=== PATIENT | male | born 1955 | race Caucasian/White ===

== ENCOUNTER → 2023-09-30 06:45 | Day surgery (SDC) | payer MEDICARE, OTHER, SELFPAY | LOC: GI 06:45 | PROVIDERS: ATTENDING PHYSICIAN Internal Medicine Gastroenterology; FAMILY PHYSICIAN Family Medicine | DX: R13.10 Dysphagia, unspecified (principal); Q39.9 Congenital malformation of esophagus, unspecified; K22.2 Esophageal obstruction; K22.9 Disease of esophagus, unspecified; K31.89 Other diseases of stomach and duodenum; B37.81 Candidal esophagitis | CPT/HCPCS: 43249; 88305; 88342 ==

== ENCOUNTER 2023-12-21 11:31 | Emergency (ER) | payer MEDICARE, OTHER, SELFPAY ==
[2023-12-21 11:38] VITALS: BP 114/85
--- NOTE | 2023-12-21 13:17 | ED.GENMED ---
History of Present Illness
General
Chief Complaint: Musculo-Skeletal Complaint
Source: patient
Exam Limitations: none
Time Seen by Provider: 12/21/23 11:58
Nursing documentation reviewed up to this point in time: agreed with
History of Present Illness
History of Present Illness:
68 y/o M with h/o htn, hld
here with right lateral ankle pain and swelling after mechanical fall lastnight
pt says his R knee gives out on him sometimes and he stood up and it buckled causing him to fall and he heard a dsnap
he initially was able to minimally weightb ear; he feels better today but it is swollen and bruised
no weakness, numbness, wounds.
nothing taken for pain
Past History
Past History
ED Past Medical History: HTN and Hypercholesterolemia
Social History
Tobacco: Non-smoker
Review of Systems
Review of Systems
Allergies reviewed?: Yes
All Other Systems: Not applicable
Phy Exam
Physical Exam
Physical Exam:
GENERAL: Alert , in no apparent distress, comfortable at rest
HEAD: NCAT
CV: 2+ DP PULSES B/L
NEUROLOGICAL: Alert and oriented, no focal neuro deficits, , 5/5 strength, sensation intact, ambulation slight limp right leg
SKIN: Warm and dry, no wounds but some bruising
MUSCULOSKELETAL: moderate STS right ankle with tenderness to malleolus laterally; pain with inversion and eversion;
no tenderness at the base of the 5th metatarsal, no other foot tenderness
no knee/prox tib/fib tenderness, full painless ROM;
PSYCH: Normal and appropriate interaction.
Course
Orders/Labs/Results
Orders:
Orders
12/21/23 11:42
Ankle, Right 3 view CR [CR Ankle - Right Min 3 Views *] Urgent
Comment:
Reason For Exam: injury
12/21/23 13:12
Acetaminophen [Tylenol] 650 mg PO NOW STA
Vital Signs
Initial and Last Documented VS:
Initial Vital Signs
Temp Pulse Resp BP Pulse Ox
98 F 65 16 114/85 98
12/21/23 11:38 12/21/23 11:38 12/21/23 11:38 12/21/23 11:38 12/21/23 11:38
Last Documented Vital Signs
Temp Pulse Resp BP Pulse Ox
98 F 65 16 114/85 98
12/21/23 11:38 12/21/23 11:38 12/21/23 11:38 12/21/23 11:38 12/21/23 11:38
MDM/Problems Addressed
Differential Diagnosis Includes:
ankle fracture, ankle sprian
MDM/Problems Addressed:
68 y/o M
fall causing ankle pain
still able to put some weight on it but painfully, swollen
moderaetely swollen
some chronic PVD skin changes
pulse present
normal sensation and strength
indep reviewed xray and shows oblique distal fibular fracture
d/w orthoepdcis dr. ortiz
ok to place in boot for WBAT and give pt walker
*Critical Care Note
Total Time (30-74mins, 75-104mins- exclusive of procedures): Not Applicable
ED Attending Note
-
Portions of this chart may have been created with voice recognition software.� Occasional wrong word or��sound alike� substitutions may have occurred due to the inherent limitations of voice recognition software.
Discharge Plan
Departure
Patient Disposition: Home (Routine Discharge)
Date of Disposition: 12/21/23
Time of Disposition: 13:20
Patient with high blood pressure during this ER visit?: No
Condition: Fair
Covid-19: Not Applicable
Discharge Problem:
Closed fracture of distal end of right fibula
Instructions: Ankle Fracture (DC)
Referrals:
Ankush Ortiz MD [Active] - Follow up in 1 week
Jony Kay MD [Family Provider] -
Activity Restrictions/Additional Instructions:
You broke your distal fibula. Use the boot while you are awake, you can remove it at night. Try to minimally weight-bear on this by using crutches to assist you. Elevate and ice off-and-on. Tylenol 3 times a day for pain. Follow-up with
orthopedics, call for an appointment on Saturday. Return for any concerns
Interventions
Interventions:
*Risk Screen - Suicide Last Done: 12/21/23 11:38
*General Assessment Last Done: 12/21/23 11:38
*Neglect/Abuse Screening Last Done: 12/21/23 11:38
ED- Fall Risk Assessment Last Done: 12/21/23 13:37
*ED COVID-19 Vaccine History Last Done: 12/21/23 13:37
*Nursing Disposition Last Done: 12/21/23 13:37
ED-Musculoskeletal Assessment Last Done: 12/21/23 13:21
Discharge Date and Time
Discharge Date/Time: 12/21/23 13:38
Print Language: MAORI
[2023-12-21] MEDS: TYLENOL 650 MG PO (13:18)
== END 2023-12-21 13:38 | disposition home or self-care (01) ==
LOC: EMR 11:31
PROVIDERS: EMERGENCY PHYSICIAN Emergency Medicine; FAMILY PHYSICIAN Family Medicine
DX: S82.831A Other fracture of upper and lower end of right fibula, initial encounter for closed fracture (principal); S90.01XA Contusion of right ankle, initial encounter; W18.39XA Other fall on same level, initial encounter; I10 Essential (primary) hypertension; E78.00 Pure hypercholesterolemia, unspecified
CPT/HCPCS: 99283; 73610

== ENCOUNTER → 2024-03-16 10:32 | Outpatient (REF) | payer MEDICARE, OTHER, SELFPAY | LOC: RAD 10:32 | PROVIDERS: ATTENDING PHYSICIAN Internal Medicine Gastroenterology; FAMILY PHYSICIAN Family Medicine | DX: R13.10 Dysphagia, unspecified (principal) | CPT/HCPCS: 74246 ==

== ENCOUNTER 2024-03-27 20:47 | Inpatient (IN) | payer MEDICARE, OTHER, SELFPAY ==
[2024-03-27] VITALS (7 sets, daily range): BP systolic 98–162; BP diastolic 75–96; BMI 28.6; BMI 28.8
--- NOTE | 2024-03-27 11:29 | ED.GENMED ---
ED Provider Triage
<Abner Iverson PA-C - Last Filed: 03/27/24 11:32>
-
Patient seen by provider in Triage?: Seen in Triage
Attestation: A medical screening examination has been initiated by a qualified medical provider. Based on the assessment performed at this time, it has been determined that an emergent medical condition may exist and the patient has been informed
that further medical evaluation and possible additional diagnostic testing may be needed.
HPI: 68-year-old male presents for evaluation of left-sided chest pain, states has been ongoing for several months but acutely worsened last night. Worse when he sits up or gets out of bed. Denies any exertional worsening but admits he has not
exerted himself due to a foot fracture recently. Pain is minimally pleuritic, does not radiate
GENERAL: Alert , in no apparent distress
EYE: No visual abnormalities.
NECK: Trachea midline
ENT: No visible abnormalities.
LUNGS: No acute respiratory distress
NEUROLOGICAL: Alert and oriented
SKIN: Skin intact. No visible changes.
MUSCULOSKELETAL: Moving extremities normally
PSYCH: Normal and appropriate interaction.
This is a medical evaluation conducted in person to initiate diagnostic evaluation and provide initial therapeutics. Please see further documentation by the treating clinician.
History of Present Illness
<Abner Iverson PA-C - Last Filed: 03/27/24 11:32>
General
Chief Complaint: Chest Pain
Time Seen by Provider: 03/27/24 16:25
<Reginaldo Rivera MD - Last Filed: 03/27/24 19:11>
History of Present Illness
History of Present Illness:
Patient presents to the emergency department with severe left-sided chest pain ongoing for the past 2 days. Pain increases with cough. Denies any fevers or chills. Denies any dyspnea. States he has a history of borderline COPD and long-term
smoking history. States he has been having some discomfort in the left side of his chest over the past couple of months however it has become much more severe over the past
Past History
<Abner Iverson PA-C - Last Filed: 03/27/24 11:32>
Past History
ED Past Medical History: HTN and Hypercholesterolemia
Social History
Tobacco: Non-smoker
Phy Exam
<Reginaldo Rivera MD - Last Filed: 03/27/24 19:11>
Physical Exam
Physical Exam:
GENERAL APPEARANCE: NAD, well developed/ well nourished
EYES lids/conjunctiva normal
EARS/NOSE/THROAT Mucous membranes moist, uvula midline without oral pharyngeal erythema, exudate or swelling
HEAD/NECK normocephalic atraumatic, neck is supple.
RESPIRATORY respiratory effort normal, speaks in full sentences, no accessory muscle use. Lungs clear to auscultation without rhonchi, wheezes, rales
CARDIAC Regular rate and rhythm, no edema.
ABDOMINAL Soft, ND/NT. There is some mottling to the left side of his abdomen
MUSCLES/EXTREMITIES No abnormal range of motion, no swelling.
SKIN Warm, pink and dry. No rashes
NEUROLOGICAL Speech is clear and appropriate. Normal level of consciousness. 5/5 strength in all extremities.
PSYCH Normal mood and affect. Judgement/competence is appropriate
Scores
<Reginaldo Rivera MD - Last Filed: 03/27/24 19:11>
Heart Score for Chest Pain Patients
STEMI patient?: Not applicable
Course
<Abner Iverson PA-C - Last Filed: 03/27/24 11:32>
Orders/Labs/Results
Orders:
Orders
03/27/24 11:27
EKG [Electrocardiogram (*1)] Urgent
Reason for Study: Chest Pain
03/27/24 11:28
EKG- Treatment ONCE
03/27/24 11:32
CR Chest - 2 Views Urgent
Comment:
Reason For Exam: chest pain
03/27/24 11:41
Complete Blood Count/With Diff Urgent
Comprehensive Metabolic Panel Urgent
Troponin I Urgent
03/27/24 16:41
Azithromycin 500 mg/250 ml [Zithromax Infusion] 500 mg in 250 ml IV NOW
CefTRIAXone [Rocephin] 1,000 mg IV NOW STA
03/27/24 16:45
CT Chest PE Study Urgent
Comment:
Reason For Exam: L sided pleuritic pain, abnormal CXR rule
03/27/24 16:46
Morphine Sulfate 4 mg IV NOW STA
03/27/24 16:57
Lactic Acid Q4H
Comment: CANCEL 2nd LACTIC ACID IF 1st LACTIC ACID IS LESS THAN 2
Blood Culture Q30M
YANNICK Source: Blood/Venous
Specimen Description:
03/27/24 17:06
Blood Culture Q30M
YANNICK Source: Blood/Venous
Specimen Description:
03/27/24 19:06
0.9% Sodium Chloride 1000 ml [Nss] 1,000 ml IV BOLUS
03/27/24 20:45
Lactic Acid Q4H
Comment: CANCEL 2nd LACTIC ACID IF 1st LACTIC ACID IS LESS THAN 2
Abnormal Lab Results
03/27/24 03/27/24
11:41 16:57
WBC 20.6 H 10^3/uL
(4.8-10.8)
RBC 3.94 L 10^6/uL
(4.70-6.10)
MCV 110.2 H fL
(80.0-94.0)
MCH 37.1 H pg
(27.0-31.0)
Abs Immat Gran (auto) 0.2 H 10^3/uL
(0-0.05)
Absolute Neuts (auto) 18.2 H 10^3/uL
(1.4-6.5)
Absolute Lymphs (auto) 0.9 L 10^3/uL
(1.2-3.4)
Absolute Monos (auto) 1.2 H 10^3/uL
(0.1-0.6)
Immature Gran % 1.1 H %
(0-0.5)
Neutrophils % 88.3 H %
(42.2-75.2)
Lymphocytes % 4.5 L %
(20.5-51.1)
Sodium 134 L mmol/L
(135-145)
Chloride 95 L mmol/L
(98-107)
Glucose 252 H mg/dl
(70-99)
Lactic Acid 2.5 H mmol/L
(0.7-2.0)
Calcium 8.1 L mg/dl
(8.4-10.2)
Total Bilirubin 1.4 H mg/dl
(0.2-1.3)
03/27/24 11:41
03/27/24 11:41
Vital Signs
Initial and Last Documented VS:
Initial Vital Signs
Temp Pulse Resp BP Pulse Ox
99.5 F 90 16 145/89 95
03/27/24 11:35 03/27/24 11:35 03/27/24 11:35 03/27/24 11:35 03/27/24 11:35
Last Documented Vital Signs
Temp Pulse Resp BP Pulse Ox
99.8 F 90 18 134/86 91
03/27/24 16:30 03/27/24 17:15 03/27/24 17:15 03/27/24 17:13 03/27/24 17:15
<Reginaldo Rivera MD - Last Filed: 03/27/24 19:11>
Orders/Labs/Results
Orders:
Orders
03/27/24 11:27
EKG [Electrocardiogram (*1)] Urgent
Reason for Study: Chest Pain
03/27/24 11:28
EKG- Treatment ONCE
03/27/24 11:32
CR Chest - 2 Views Urgent
Comment:
Reason For Exam: chest pain
03/27/24 11:41
Complete Blood Count/With Diff Urgent
Comprehensive Metabolic Panel Urgent
Troponin I Urgent
03/27/24 16:41
Azithromycin 500 mg/250 ml [Zithromax Infusion] 500 mg in 250 ml IV NOW
CefTRIAXone [Rocephin] 1,000 mg IV NOW STA
03/27/24 16:45
CT Chest PE Study Urgent
Comment:
Reason For Exam: L sided pleuritic pain, abnormal CXR rule
03/27/24 16:46
Morphine Sulfate 4 mg IV NOW STA
03/27/24 16:57
Lactic Acid Q4H
Comment: CANCEL 2nd LACTIC ACID IF 1st LACTIC ACID IS LESS THAN 2
Blood Culture Q30M
YANNICK Source: Blood/Venous
Specimen Description:
03/27/24 17:06
Blood Culture Q30M
YANNICK Source: Blood/Venous
Specimen Description:
03/27/24 19:06
0.9% Sodium Chloride 1000 ml [Nss] 1,000 ml IV BOLUS
03/27/24 20:45
Lactic Acid Q4H
Comment: CANCEL 2nd LACTIC ACID IF 1st LACTIC ACID IS LESS THAN 2
Abnormal Lab Results
03/27/24 03/27/24
11:41 16:57
WBC 20.6 H 10^3/uL
(4.8-10.8)
RBC 3.94 L 10^6/uL
(4.70-6.10)
MCV 110.2 H fL
(80.0-94.0)
MCH 37.1 H pg
(27.0-31.0)
Abs Immat Gran (auto) 0.2 H 10^3/uL
(0-0.05)
Absolute Neuts (auto) 18.2 H 10^3/uL
(1.4-6.5)
Absolute Lymphs (auto) 0.9 L 10^3/uL
(1.2-3.4)
Absolute Monos (auto) 1.2 H 10^3/uL
(0.1-0.6)
Immature Gran % 1.1 H %
(0-0.5)
Neutrophils % 88.3 H %
(42.2-75.2)
Lymphocytes % 4.5 L %
(20.5-51.1)
Sodium 134 L mmol/L
(135-145)
Chloride 95 L mmol/L
(98-107)
Glucose 252 H mg/dl
(70-99)
Lactic Acid 2.5 H mmol/L
(0.7-2.0)
Calcium 8.1 L mg/dl
(8.4-10.2)
Total Bilirubin 1.4 H mg/dl
(0.2-1.3)
03/27/24 11:41
03/27/24 11:41
Vital Signs
Initial and Last Documented VS:
Initial Vital Signs
Temp Pulse Resp BP Pulse Ox
99.5 F 90 16 145/89 95
03/27/24 11:35 03/27/24 11:35 03/27/24 11:35 03/27/24 11:35 03/27/24 11:35
Last Documented Vital Signs
Temp Pulse Resp BP Pulse Ox
99.8 F 90 18 134/86 91
03/27/24 16:30 03/27/24 17:15 03/27/24 17:15 03/27/24 17:13 03/27/24 17:15
<Reginaldo Rivera MD - Last Filed: 03/27/24 19:11>
*Critical Care Note
Total Time (30-74mins, 75-104mins- exclusive of procedures): Not Applicable
ED Attending Note
<Abner Iverson PA-C - Last Filed: 03/27/24 11:32>
-
Portions of this chart may have been created with voice recognition software.� Occasional wrong word or��sound alike� substitutions may have occurred due to the inherent limitations of voice recognition software.
<Reginaldo Rivera MD - Last Filed: 03/27/24 19:11>
ED Attending Note
ED Attending Note:
Patient presents with months of intermittent pleuritic chest pain now worsening with cough. Afebrile though temp is 99.8. Saturating around 93% on room air, in no respiratory distress. Leukocytosis and lactic acid elevation noted. Patient with
severe sepsis with evidence of endorgan damage. Also with elevated blood glucose in the 250s without any history of diabetes. No evidence of DKA. Will give IV fluids for this. CTA of the chest negative for pulmonary embolism but showing moderate
left-sided pleural effusion with loculation and likely pneumonia in the left lower to mid lung. Patient covered antibiotics and given IV fluids for sepsis. 30 cc/kg not indicated given lack of septic shock
Discharge Plan
Departure
Patient Disposition: Admit
Date of Disposition: 03/27/24
Time of Disposition: 19:09
Presentation/result/management discussed w/ accepting MD/DO: Hospitalist
Discharge Problem:
Loculated pleural effusion, Pneumonia, Sepsis
Prescriptions:
No Action
hydroxyurea 500 mg Capsule
500 mg PO BID
cyanocobalamin (vitamin B-12) 1,000 mcg Tablet
1,000 mcg PO DAILY
aspirin 81 mg Tablet,Delayed Release (Dr/Ec)
81 mg PO DAILY
amlodipine-benazepril 5-20 mg Capsule
1 cap PO DAILY
pantoprazole [Protonix] 40 mg Tablet,Delayed Release (Dr/Ec)
40 mg PO DAILY
folic acid 1 mg Tablet
1 mg PO DAILY
rosuvastatin [Crestor] 40 mg Tablet
40 mg PO DAILY
calcium carbonate-vitamin D3 [Calcium 500 + D] 500 mg-10 mcg (400 unit) Tablet
1 tab PO DAILY
Trelegy Ellipta 100-62.5-25 mcg Blister With Device
1 inh INHALATION R DAILY
Referrals:
Jony Kay MD [Family Provider] -
Interventions
Interventions:
*Risk Screen - Suicide Last Done: 03/27/24 11:35
*General Assessment Last Done: 03/27/24 11:35
*Neglect/Abuse Screening Last Done: 03/27/24 11:35
*ED COVID-19 Vaccine History Last Done: 03/27/24 16:19
Discharge Date and Time
Print Language: IRISH
[2024-03-27 12:17] LABS: % Basophils 0.2 % (0-2); % Eosinophils 0.1 % (0-6); % Immature Granulocytes 1.1 % (0-0.5); % Lymphocytes 4.5 % (20.5-51.1); % Monocytes 5.8 % (1.7-9.3); % Neutrophils 88.3 % (42.2-75.2); Absolute Immature Granulocytes 0.2 10^3/uL (0-0.05); Absolute Lymphocytes 0.9 10^3/uL (1.2-3.4); Absolute Monocytes 1.2 10^3/uL (0.1-0.6); Absolute Neutrophils 18.2 10^3/uL (1.4-6.5); Hematocrit 43.4 % (39.0-52.0); Hemoglobin 14.6 g/dL (13.0-18.0); Mean Corp Hgb Conc. 33.6 g/dL (33.0-37.0); Mean Corpuscular Hgb 37.1 pg (27.0-31.0); Mean Corpuscular Volume 110.2 fL (80.0-94.0); Mean Platelet Volume 8.3 fL (7.4-10.4); Nucleated Red Blood Cells % 0 % (-); Platelet Count 282 10^3/uL (130-400); Red Blood Cell Count 3.94 10^6/uL (4.70-6.10); Red Cell Dist. Width 12.7 % (11.5-14.5); White Blood Cell Count 20.6 10^3/uL (4.8-10.8)
[2024-03-27 12:23] LABS: ALT (SGPT) 29 U/L (0-50); AST (SGOT) 29 U/L (17-59); Albumin 3.6 g/dl (3.5-5.0); Alkaline Phosphatase 73 U/L (38-126); Blood Urea Nitrogen 12 mg/dl (9-20); Calcium 8.1 mg/dl (8.4-10.2); Carbon Dioxide 29 mmol/L (22-30); Chloride 95 mmol/L (98-107); Glucose 252 mg/dl (70-99); Potassium 4.2 mmol/L (3.5-5.1); Sodium 134 mmol/L (135-145); Total Bilirubin 1.4 mg/dl (0.2-1.3); Total Protein 6.3 g/dl (6.3-8.2); eGFR > 60.00
[2024-03-27 12:24] LABS: Troponin I < 0.012 ng/ml
[2024-03-27] MEDS: MORPHINE SULFATE 4 MG IV (16:53)
[2024-03-27] MEDS: ROCEPHIN 1000 MG IV (17:09)
[2024-03-27] MEDS: ZITHROMAX INFUSION 250 IV (17:12)
[2024-03-27 17:19] LABS: Lactic Acid 2.5 mmol/L (0.7-2.0)
--- NOTE | 2024-03-27 20:00 | EDRN ---
Report received, patient ambulated to the restroom and back in bed.
--- NOTE | 2024-03-27 20:21 | HPS.HSE ---
Family Physician
-
Family Physician: Jony Kay
Chief Complaint
-
Chest pain
History of Present Illness
He is a 68-year-old former smoker with a past medical history significant for COPD, hyperlipidemia, hypertension, presenting to the emergency department with a 1 week history of left-sided chest pain.
Patient reports chronic cough for several months now which has not changed recently. Over the last 1 week is reported as a constant sharp chest pain that is worse with inspiration or movement. He denies having fevers or chills at home. Denies any
changes to the intensity of his cough. He denies feeling short of breath at rest. He is unable to tell me when he has not any exertional dyspnea. Patient reports sick contacts with his son with the cold. He denies any lower extremity swelling.
He denies palpitations lightheadedness or dizziness. He denies any recent travel. Patient denies any recent antibiotic use. He denies substernal exertional pain. Pain is localized to the left lower chest anteriorly and is nonradiating.
In the emergency department he had a low-grade temp of 99.8, he was satting 90% on room air, blood pressure was 134/80 with a pulse of 90. Troponin was negative. Lactic acid was 2.5. Chest x-ray shows left hemithorax opacification consistent with
a pleural effusion. CT consistent with left moderate pleural effusion with loculation. There is a patchy parenchymal opacity within the left mid to lower lung concerning for pneumonia versus atelectasis. There is also a small pericardial
effusion. No PE.
White count was 20,000, hemoglobin and platelet were normal. Electrolytes BUN/creatinine were normal.
Medical History
Past Medical History
Past Medical History: Reports COPD, GERD, HTN and Hypercholesterolemia
Past Surgical History: Reports Bowel Resection
Social History
Tobacco: Former Smoker
Alcohol: Occasional
Drug: None
Personal:
Living: With Family
Family History
Family History: Not pertinent
Allergies / Home Medications
Allergies reflects when Allergies were last updated in [employer].
Home Medications with original date entered in [employer]
Allergy/Medication List:
Allergies
Allergy/AdvReac Type Severity Reaction Status Date / Time
No Known Allergies Allergy Verified 03/27/24 11:35
Home Medications
amlodipine 5 mg-benazepril 20 mg capsule 1 cap PO DAILY 03/27/24
aspirin 81 mg tablet,delayed release 81 mg PO DAILY 03/27/24
calcium 500 mg (as carbonate)-vitamin D3 10 mcg (400 unit) tablet (Calcium 500 + D) 1 tab PO DAILY 03/27/24
cyanocobalamin (vitamin B-12) 1,000 mcg tablet 1,000 mcg PO DAILY 03/27/24
fluticasone fur. 100 mcg-umeclid 62.5 mcg-vilant 25 mcg inhalat.powder (Trelegy Ellipta) 1 inh inhalation R DAILY 03/27/24
folic acid 1 mg tablet 1 mg PO DAILY 03/27/24
hydroxyurea 500 mg capsule 500 mg PO BID 03/27/24
pantoprazole 40 mg tablet,delayed release (Protonix) 40 mg PO DAILY 03/27/24
rosuvastatin 40 mg tablet (Crestor) 40 mg PO DAILY 03/27/24
Review of Systems
-
History Source: Patient
Constitutional: Reports No Symptoms
EENT: Reports No Symptoms
Respiratory: Reports Cough
Cardiac: Reports Chest Pain
Abdomen/GI: Reports No Symptoms
: Reports No Symptoms
Musculoskeletal: Reports No Symptoms
Skin: Reports No Symptoms
Neurological: Reports No Symptoms
Endocrine: Reports No Symptoms
Hematologic/Lymphatic: Reports No Symptoms
Psych: Reports No Symptoms
Physical Exam
Vital Signs
Vital Signs
Temp Pulse Resp BP Pulse Ox
99.8 F 90 18 134/86 91
03/27/24 16:30 03/27/24 17:15 03/27/24 17:15 03/27/24 17:13 03/27/24 17:15
Physical Exam
General: Well Developed, Well Nourished and Pain
HEENT: NormoCephalic, Anicteric, Moist mucous membranes and Atraumatic
Respiratory: Clear
Cardiac: S1/S2 and Regular Rhythm
Breast: Deferred by me
GI: Soft, Non Tender, Non Distended and Normal Bowel Sounds
Rectal: Deferred by Provider
Genito-urinary: Clear Urine
Musculoskeletal: No Clubbing, No Cyanosis and No Edema
Skin: Warm
Neuro: AO x 3 and Nonfocal/grossly intact
Hematologic/Lymphatic: No Lymphadenopathy
Psych: Calm
Laboratory Results
-
03/27/24 11:41
03/27/24 11:41
Laboratory Results
Lactic Acid 2.5 mmol/L (0.7-2.0) H 03/27/24 16:57
Total Bilirubin 1.4 mg/dl (0.2-1.3) H 03/27/24 11:41
AST 29 U/L (17-59) 03/27/24 11:41
ALT 29 U/L (0-50) 03/27/24 11:41
Alkaline Phosphatase 73 U/L (38-126) 03/27/24 11:41
Troponin I < 0.012 ng/ml 03/27/24 11:41
Data Reviewed
-
Diagnostic Radiology: Image Personally Visualized and interpreted and Report Reviewed by me
CT Scan: Report Reviewed by me
Medical Tests (Nuc Med, Echo, EKG etc): Image Personally Visualized and interpreted
Lab Data: Labs Reviewed by me
Old Records: Reviewed
Impression/Plan
-
IMPRESSION:
68 y.o male with left sided pleuritic chest pain, SOB, low grade fevers and leukocytosis. Left sided loculated pleural effusion c/w parapneumonic effusion. Has small pericardial effusion with possible pneumonia related pericarditis.
PLAN:
1. PNA - Community acquired pna. No recent abx use. Mild O2 requirements
- admit to med surg
- check legionella ag
- blood cultures if febrile
- start ceftriaxone/azithromycin
- supportive measures
2. Effusion - loculated pleural effusion, moderate size,
- IR for diagnostic tap and cultures
- pulmonary consultation
3. Pericardial effusion - likely related to infection above
- thoracentesis for now
- treat infection
- nsaids prn
- echo
- amira need f/u echo after d/c
4. COPD - stable
- continue home inhaler (trelegy)
- prn nebs
- no indication for systemic steroids
DVT PPX - lovenox sq
Code status - full code
[2024-03-27] MEDS: NSS 1000 IV (20:23)
--- NOTE | 2024-03-27 20:30 | EDRN ---
Hospitalist at bedside working on admission, patient also placed on 2l nasal canula, o2 sats were dropping to 89%, no other complaints
[2024-03-27] MEDS: TYLENOL 650 MG PO (22:23)
[2024-03-27] MEDS: ROBITUSSIN DM 5 ML PO (22:23)
[2024-03-28 00:08] VITALS: BP 110/73
[2024-03-28 00:20] LABS: Lactic Acid 1.7 mmol/L (0.7-2.0)
[2024-03-28 00:30] LABS: COVID-19 Antigen Negative (Negative)
--- NOTE | 2024-03-28 06:08 | PTCARENOTE ---
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
--- NOTE | 2024-03-28 07:32 | W.PN.HOSP.TC ---
Addendum entered and electronically signed by Bulmaro Vásquez MD 03/28/24 17:19:
Stopped Flagyl as Pulmonary has mentioned Ceftriaxone and Azithromycin are adequate for now.
Original Note:
Today's Communication/Plan
-
Continue antibiotics
Assessment / Plan
Assessment / Plan
Physical Exam
General: Not in acute distress
HEENT: Normocephalic
Respiratory: Clear to Auscultation Bilaterally
Cardiac: S1/S2 and Regular Rhythm
GI: Soft, Non Tender, Non Distended and Normal Bowel Sounds
Musculoskeletal: No Cyanosis and No Edema
Skin: Warm
Neuro: AO x 3 and Nonfocal/grossly intact
Psych: Calm
Assessment/Plan
68 y/o male with left sided pleuritic chest pain, SOB, low grade fevers and leukocytosis. Left sided loculated pleural effusion c/w parapneumonic effusion. Has small pericardial effusion with possible pneumonia related pericarditis.
Presentation with left-sided pleuritic chest pain, cough and mild shortness of breath
Pneumonia - Community-Acquired Pneumonia
Loculated Pleural Effusion
Leukocytosis
Acute Hypoxic Respiratory Insufficiency (not on home oxygen)
- No recent antibiotic use
- Influenza and Legionella antigen negative
- blood cultures pending
- start ceftriaxone/azithromycin/flagyl (Flagyl added in case empyema)
- supportive measures
Lactic Acidosis
-Resolved
Pleural Effusion - loculated pleural effusion, moderate size,
- IR consulted on admission for diagnostic tap and cultures
- Pulmonary consulted at the time if admission
Small Pericardial effusion - likely related to infection above
- treat infection
- nsaids prn
- echo
- amira need f/u echo after d/c
COPD - stable
- continue home inhaler (trelegy)
- prn nebs
- no indication for systemic steroids
DVT Prophylaxis: Lovenox subq
Code Status: Full Code
Anticipated Discharge: > 48 hours
Subjective/Interval History
-
Date of Service: March 28, 2024
Patient was seen and examined. He reported that his chest pain and shortness of breath have improved.
Objective Data
-
Labs:
Laboratory Results
03/28/24
06:58
WBC Pending
Hgb Pending
Hct Pending
Plt Count Pending
Sodium Pending
Potassium Pending
Chloride Pending
Carbon Dioxide Pending
BUN Pending
Creatinine Pending
Glucose Pending
Calcium Pending
Vital Signs:
Vital Signs
Temp Pulse Resp BP Pulse Ox
100.5 F H 83 20 110/73 94
03/27/24 23:00 03/28/24 00:08 03/27/24 23:00 03/28/24 00:08 03/27/24 23:00
I&O
03/27/24 03/28/24 03/29/24
06:59 06:59 06:59
Intake Total 480 / 480
Balance 480 / 480
[2024-03-28 07:38] LABS: Hematocrit 37.2 % (39.0-52.0); Hemoglobin 12.7 g/dL (13.0-18.0); Mean Corp Hgb Conc. 34.1 g/dL (33.0-37.0); Mean Corpuscular Hgb 37.1 pg (27.0-31.0); Mean Corpuscular Volume 108.8 fL (80.0-94.0); Mean Platelet Volume 8.5 fL (7.4-10.4); Platelet Count 257 10^3/uL (130-400); Red Blood Cell Count 3.42 10^6/uL (4.70-6.10); Red Cell Dist. Width 13.1 % (11.5-14.5); White Blood Cell Count 25.2 10^3/uL (4.8-10.8)
[2024-03-28 07:40] VITALS: BP 137/74
[2024-03-28 07:59] LABS: Blood Urea Nitrogen 18 mg/dl (9-20); Calcium 8.1 mg/dl (8.4-10.2); Carbon Dioxide 22 mmol/L (22-30); Chloride 98 mmol/L (98-107); Estimated Creatinine Clearance 114 ml/min; Glucose 159 mg/dl (70-99); LDH 302 U/L (120-246); Potassium 3.7 mmol/L (3.5-5.1); Sodium 134 mmol/L (135-145); Total Protein 6.1 g/dl (6.3-8.2); eGFR > 60.00
[2024-03-28] MEDS: SYMBICORT 80/4.5 MCG INHALER 2 PUFF INH ×2 (08:37→16:28)
[2024-03-28] MEDS: SPIRIVA RESPIMAT 2.5 MCG 2 PUFF INH (08:37)
[2024-03-28] MEDS: FOLVITE 1 MG PO (09:03)
[2024-03-28] MEDS: CRESTOR 40 MG PO (09:03)
[2024-03-28] MEDS: ASPIR LOW (ENTERIC COATED) 81 MG PO (09:03)
[2024-03-28] MEDS: PROTONIX 40 MG PO (09:03)
[2024-03-28] MEDS: HYDREA 500 MG PO ×2 (09:03→19:37)
[2024-03-28] MEDS: LOTREL 5 MG/20 MG 1 CAPSULE PO (09:04)
[2024-03-28 10:03] VITALS: BP 128/76; PULSE 87; O2SAT 90
[2024-03-28 12:31] LABS: Glycohemoglobin (HgbA1c) 6.4 % (4.0-5.6)
--- NOTE | 2024-03-28 14:55 | PTCARENOTE ---
pt nauseous and vomiting. clarifying PRN Zofran with pharm
--- NOTE | 2024-03-28 15:13 | CON.PUL ---
Consultation
Consultation Request
Date/Time Consultation Requested: 03/28
Date/Time Consultation Performed: 03/28
Reason for Consultation: Pleural effusion
Medical History
-
History of Present Illness:
History obtained from the patient and reviewing the medical records. Patient is a 68-year-old male with history of hypertension, hypercholesterolemia, achalasia being scheduled for surgery in the next few months. He has been complaining of
left-sided chest discomfort for months. He also describes a cough. He does admit to some mild shortness of breath but otherwise denies any limitations. For this reason he brought himself into [facility] where upon arrival, temperature
99.5, pulse 90, breathing at 16, blood pressure 145/89, 95%. Patient had chest x-ray which revealed left pleural parenchymal process, elevated white count of 20.6, elevated blood sugars. CT chest was obtained which revealed left pleural effusion
which appeared to be loculated. There was no evidence of pulmonary embolism. There is also small pericardial effusion and documented diffuse dilation of the esophagus which was present on prior imaging and workup. We are asked to comment on his
pulmonary process
.
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 History of achalasia followed by GI
Past Medical History
Past Medical History: None (See above)
Past Surgical History: None (See above)
Social History
Tobacco: Former Smoker ([id number] history of smoking, quit 2023)
Alcohol: Occasional
Drug: None
Living: With Family
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
Family History
Family History: Other (Family history of lung cancer, sister 6 decade.)
Allergies / Home Medications
Allergies
Allergy/AdvReac Type Severity Reaction Status Date / Time
No Known Allergies Allergy Verified 03/27/24 11:35
Home Medications
�Medication �Instructions �Recorded �Confirmed �Last Taken �Type
amlodipine 5 mg-benazepril 20 mg 1 cap PO DAILY 03/27/24 03/27/24 03/25/24 History
capsule
aspirin 81 mg tablet,delayed 81 mg PO DAILY 03/27/24 03/27/24 03/25/24 History
release
calcium 500 mg (as 1 tab PO DAILY 03/27/24 03/27/24 03/25/24 History
carbonate)-vitamin D3 10 mcg (400
unit) tablet (Calcium 500 + D)
cyanocobalamin (vitamin B-12) 1,000 mcg PO DAILY 03/27/24 03/27/24 03/25/24 History
1,000 mcg tablet
fluticasone fur. 100 mcg-umeclid 1 inh inhalation R DAILY 03/27/24 03/27/24 03/25/24 History
62.5 mcg-vilant 25 mcg
inhalat.powder (Trelegy Ellipta)
folic acid 1 mg tablet 1 mg PO DAILY 03/27/24 03/27/24 03/25/24 History
hydroxyurea 500 mg capsule 500 mg PO BID 03/27/24 03/27/24 03/25/24 History
pantoprazole 40 mg tablet,delayed 40 mg PO DAILY 03/27/24 03/27/24 03/25/24 History
release (Protonix)
rosuvastatin 40 mg tablet (Crestor) 40 mg PO DAILY 03/27/24 03/27/24 03/25/24 History
Review of Systems
-
All other systems: Negative unless noted
Vitals / Labs / Diagnostic Testing
Vital Signs
Temp Pulse Resp BP Pulse Ox
98.6 F 87 18 137/74 96
03/28/24 07:40 03/28/24 08:40 03/28/24 08:40 03/28/24 07:40 03/28/24 08:40
Lab Data
03/28/24 06:58
03/28/24 06:58
Microbiology
03/28/24 05:34 Urine Legionella Urinary Antigen - Final
Negative for Legionella pneumophila Serogroup 1 antigen.
A negative result does not rule out the possiblity of
Legionella infection due to other serogroups or species of
Legionella. Clinical correlation is recommended.
03/27/24 23:57 Nasal Swab Influenza Types A & B (PORSCHE) - Final
Negative for Influenza A & B, NAAT
Negative results must be combined with clinical observations
and patient history.
Nucleic Acid Amplification test (NAAT)performed on the
[employer] / ?.?? platform.
Diagnostic Testing:
Physical Exam
-
HEENT: Normocephalic
Cardiovascular: S1/S2, Regular Rhythm, Murmur (n), Rub (n) and Peripheral Edema (n)
Respiratory: Wheeze (n), Rales (n), Rhonchi (n), Non-Labored Respirations and Other (decreased BS throughout)
GI: Soft, Non Distended and Non Tender
Neurology: Awake, Alert, Oriented and No Motor Deficits
Skin: Good Color
General: Comfortable
Assessment
-
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 He denies any trauma. Found to have
loculated pleural effusion. He was also being worked up for achalasia and possible GI surgery in the next few months. We are asked to comment on his pulmonary process
Loculated left pleural effusion
Mild pleural thickening
Likely chronic, symptoms present for months (pleurisy, mild dyspnea)
Chronic cough
Suspected COPD
Conditions present prior to admission
Hypertension/hyperlipidemia
History of achalasia
Followed by GI, awaiting for surgical intervention
GERD
[id number] history of smoking, quit 2023
Family history of lung cancer (sister) sixth decade
Plan/recommendations
At this time, patient appears to be nontoxic
On further questioning, symptoms are very present for months
Family history of lung cancer noted
Patient denies any symptoms to suggest infection such as fevers, chills, sweats, significant weight loss
He also feels symptoms have improved significantly since admission. He has received antibiotics and 1 dose of morphine yesterday p.m.
Moving forward
Continue with empiric antibiotics
Ceftriaxone/azithromycin is adequate
Continue with inhaler therapy for suspected COPD
Eventual left thoracentesis is recommended but no urgency
We will send for appropriate studies when completed including cytology, chemistries
Pain control as needed
Head of bed elevated, aspiration precautions given achalasia
DVT prophylaxis: Continue with enoxaparin
GI prophylaxis: Patient on Protonix
Will follow
[2024-03-28] MEDS: ZOFRAN 4 MG IV (15:15)
[2024-03-28] MEDS: TYLENOL 650 MG PO (15:28)
[2024-03-28 15:30] VITALS: BP 127/52
[2024-03-28] MEDS: LOVENOX 40 MG SC (17:32)
[2024-03-28] MEDS: ROCEPHIN 1000 MG IV (17:33)
[2024-03-28] MEDS: STERILE WATER FOR INJECTION 10 ML IV (17:34)
[2024-03-28] MEDS: ZITHROMAX INFUSION 250 IV (17:34)
[2024-03-28 23:00] VITALS: BP 109/50
[2024-03-29] MEDS: ZOFRAN 4 MG IV ×2 (03:52→16:45)
[2024-03-29 07:11] LABS: % Basophils 0.2 % (0-2); % Eosinophils 0.5 % (0-6); % Immature Granulocytes 1.2 % (0-0.5); % Lymphocytes 7.6 % (20.5-51.1); % Monocytes 6.5 % (1.7-9.3); Absolute Eosinophils 0.1 10^3/uL (0-0.7); Absolute Immature Granulocytes 0.3 10^3/uL (0-0.05); Absolute Lymphocytes 1.8 10^3/uL (1.2-3.4); Absolute Monocytes 1.5 10^3/uL (0.1-0.6); Absolute Neutrophils 19.5 10^3/uL (1.4-6.5); Hematocrit 35.3 % (39.0-52.0); Hemoglobin 11.7 g/dL (13.0-18.0); Mean Corp Hgb Conc. 33.1 g/dL (33.0-37.0); Mean Corpuscular Hgb 36.6 pg (27.0-31.0); Mean Corpuscular Volume 110.3 fL (80.0-94.0); Mean Platelet Volume 8.6 fL (7.4-10.4); Nucleated Red Blood Cells % 0 % (-); Platelet Count 256 10^3/uL (130-400); White Blood Cell Count 23.2 10^3/uL (4.8-10.8)
[2024-03-29] MEDS: SPIRIVA RESPIMAT 2.5 MCG 2 PUFF INH (07:14)
[2024-03-29] MEDS: SYMBICORT 80/4.5 MCG INHALER 2 PUFF INH ×2 (07:14→21:30)
[2024-03-29 07:34] VITALS: BP 123/65
[2024-03-29 07:37] LABS: Blood Urea Nitrogen 26 mg/dl (9-20); Carbon Dioxide 28 mmol/L (22-30); Chloride 96 mmol/L (98-107); Estimated Creatinine Clearance 89 ml/min; Glucose 137 mg/dl (70-99); Potassium 3.3 mmol/L (3.5-5.1); Sodium 134 mmol/L (135-145); eGFR > 60.00
[2024-03-29] MEDS: FOLVITE 1 MG PO (08:27)
[2024-03-29] MEDS: PROTONIX 40 MG PO (08:27)
[2024-03-29] MEDS: LOTREL 5 MG/20 MG 1 CAPSULE PO (08:27)
[2024-03-29] MEDS: ASPIR LOW (ENTERIC COATED) 81 MG PO (08:27)
[2024-03-29] MEDS: CRESTOR 40 MG PO (08:27)
[2024-03-29] MEDS: HYDREA 500 MG PO ×2 (08:28→19:47)
--- NOTE | 2024-03-29 09:19 | CM ---
CM met with at bedside to complete IA.
He lives with his and son in a split level home with 3-7 steps between levels. 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
Plan: Discharge to home with return to OP Physical therapy.
PCP: Jony Kay
Pharm: [facility] on [address] in [place]
--- NOTE | 2024-03-29 15:35 | W.PN.PUL3 ---
Today's Communication / Plan
-
Chest x-ray in a.m.
Continue antibiotics
Possible left thoracentesis in a.m., studies ordered
Achalasia noted, aspiration precautions
Assessment
-
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 He denies any trauma. Found to have
loculated pleural effusion. He was also being worked up for achalasia and possible GI surgery in the next few months. We are asked to comment on his pulmonary process
Loculated left pleural effusion
Mild pleural thickening
Likely chronic, symptoms present for months (pleurisy, mild dyspnea)
Chronic cough
Suspected COPD
Conditions present prior to admission
Hypertension/hyperlipidemia
History of achalasia
Followed by GI, awaiting for surgical intervention
GERD
[id number] history of smoking, quit 2023
Family history of lung cancer (sister) sixth decade
Plan/recommendations
At this time, patient appears to be nontoxic
Is left-sided chest discomfort has since resolved
Has some mild muscle spasms in that area
On further questioning, symptoms are very present for months
Family history of lung cancer noted
Patient denies any symptoms to suggest infection such as fevers, chills, sweats, significant weight loss
He also feels symptoms have improved significantly since admission
Moving forward
Continue with empiric antibiotics
Ceftriaxone/azithromycin is adequate
Continue with inhaler therapy for suspected COPD
Eventual left thoracentesis is recommended but no urgency
We will send for appropriate studies when completed including cytology, chemistries
Pain control as needed
Anticipate left thoracentesis 2/3
Will obtain chest x-ray in the a.m. to confirm pleural effusion still present given significant improvement in symptoms
Head of bed elevated, aspiration precautions given achalasia
DVT prophylaxis: Continue with enoxaparin
GI prophylaxis: Patient on Protonix
Will follow
Subjective Data
-
Date of Service:
Date of Service: March 29, 2024
Subjective:
Patient is feeling better today. Left chest discomfort is almost resolved. There is some twinges of muscle spasms. Mild cough, no hemoptysis. Denies abdominal pain. He is having some mild nausea. He is up walking to the bathroom without
difficulty
Objective Data
Data Reviewed
Vital Signs / I&O / Oxygen:
Vital Signs
Temp Pulse Resp BP Pulse Ox
98.0 F 86 18 123/65 92
03/29/24 07:34 03/29/24 07:34 03/29/24 07:34 03/29/24 07:34 03/29/24 07:34
Intake and Output
03/28/24 03/29/24 03/30/24
06:59 06:59 06:59
Intake Total 480 / 480 960 / 960
Balance 480 / 480 960 / 960
SaO2 92
Nasal Cannula flow liters per 2
minute
Physical Exam
General: Comfortable
HEENT: Normocephalic and Anicteric
Cardiovascular: S1-S2, Regular Rhythm, Murmur (n) and Rub (n)
Respiratory: Wheeze (n), Crackles (n), Rhonchi (n) and Other (Decreased at the left base)
GI: Soft, Non Distended and Non Tender
Neurology: Awake, Alert and No Motor Deficits
Skin: Cyanosis (n), Jaundice (n) and Rash (n)
Labs/Micro/Reports
Lab Data
03/29/24 06:24
03/29/24 06:24
Microbiology
03/27/24 17:06 Blood/Venous Blood Culture - Preliminary
No Growth in 24 hours- Final report to follow
03/27/24 16:57 Blood/Venous Blood Culture - Preliminary
No Growth in 24 hours- Final report to follow
03/28/24 05:34 Urine Legionella Urinary Antigen - Final
Negative for Legionella pneumophila Serogroup 1 antigen.
A negative result does not rule out the possiblity of
Legionella infection due to other serogroups or species of
Legionella. Clinical correlation is recommended.
03/27/24 23:57 Nasal Swab Influenza Types A & B (PORSCHE) - Final
Negative for Influenza A & B, NAAT
Negative results must be combined with clinical observations
and patient history.
Nucleic Acid Amplification test (NAAT)performed on the
[employer] platform.
[2024-03-29 15:49] VITALS: BP 121/57
--- NOTE | 2024-03-29 16:05 | PTCARENOTE ---
Pt reports improved nausea but poor appetite. ambulating in room OOB to chair. CB in reach.
[2024-03-29] MEDS: TYLENOL 650 MG PO (16:44)
[2024-03-29] MEDS: ROBITUSSIN DM 5 ML PO (16:45)
--- NOTE | 2024-03-29 16:57 | W.PN.HOSP.TC ---
Today's Communication/Plan
-
Continue antibiotics
Possible thoracentesis tomorrow
Assessment / Plan
Assessment / Plan
Physical Exam
General: Not in acute distress
HEENT: Normocephalic
Respiratory: Decreased breath sounds on the left
Cardiac: S1/S2 and Regular Rhythm
GI: Soft, Non Tender, Non Distended and Normal Bowel Sounds
Musculoskeletal: No Cyanosis and No Edema
Skin: Warm
Neuro: AO x 3 and Nonfocal/grossly intact
Psych: Calm
Assessment/Plan
68 y/o male with left sided pleuritic chest pain, SOB, low grade fevers and leukocytosis. Left sided loculated pleural effusion c/w parapneumonic effusion. Has small pericardial effusion with possible pneumonia related pericarditis.
Presentation with left-sided pleuritic chest pain, cough and mild shortness of breath
Pneumonia - Community-Acquired Pneumonia
Loculated Pleural Effusion
Leukocytosis
Acute Hypoxic Respiratory Insufficiency (not on home oxygen)
- Was on oxygen, now on room air
- No recent antibiotic use
- Influenza and Legionella antigen negative
- Blood cultures with no growth to date
- Continue Ceftriaxone and Azithromycin which is adequate per pulmonary
- Chest x-ray in a.m. to confirm pleural effusion still present given significant improvement in symptoms
- IR to attempt thoracentesis tomorrow
- EKG in AM to check QTc given Azithromycin
- Pulmonary following
Hypokalemia
- Replaced
- Continue to monitor BMP
Lactic Acidosis
-Resolved
Pleural Effusion - loculated pleural effusion, moderate size,
- IR consulted on admission for diagnostic tap and cultures
- Pulmonary consulted at the time if admission
Small Pericardial effusion - likely related to infection above
- treat infection
- nsaids prn
- echo
- amira need f/u echo after d/c
Achalasia
-Aspiration precautions
COPD - stable
- continue home inhaler (trelegy)
- prn nebs
- no indication for systemic steroids
DVT Prophylaxis: Lovenox subq
Code Status: Full Code
Anticipated Discharge: > 48 hours
Subjective/Interval History
-
Date of Service: March 29, 2024
Patient was seen and examined. He reported that his shortness of breath has resolved, denied any chest pain or any other complaints.
Objective Data
-
Labs:
Laboratory Results
03/29/24
06:24
WBC 23.2 H
Hgb 11.7 L
Hct 35.3 L
Plt Count 256
Sodium 134 L
Potassium 3.3 L
Chloride 96 L
Carbon Dioxide 28
BUN 26 H
Creatinine 0.9
Glucose 137 H
Calcium 8.0 L
Vital Signs:
Vital Signs
Temp Pulse Resp BP Pulse Ox
101.2 F H 81 12 121/57 94
03/29/24 15:49 03/29/24 15:49 03/29/24 15:49 03/29/24 15:49 03/29/24 15:49
I&O
03/28/24 03/29/24 03/30/24
06:59 06:59 06:59
Intake Total 480 / 480 960 / 960
Balance 480 / 480 960 / 960
[2024-03-29] MEDS: KCL 40 MEQ PO (16:59)
[2024-03-29] MEDS: LOVENOX 40 MG SC (17:00)
[2024-03-29] MEDS: STERILE WATER FOR INJECTION 10 ML IV (17:00)
[2024-03-29] MEDS: ROCEPHIN 1000 MG IV (17:00)
[2024-03-29] MEDS: ZITHROMAX INFUSION 250 IV (17:01)
[2024-03-29 23:00] VITALS: BP 101/54
[2024-03-30] MEDS: SYMBICORT 80/4.5 MCG INHALER 2 PUFF INH ×2 (07:18→21:42)
[2024-03-30] MEDS: SPIRIVA RESPIMAT 2.5 MCG 2 PUFF INH (07:18)
[2024-03-30 07:47] VITALS: BP 113/76
[2024-03-30] MEDS: LOTREL 5 MG/20 MG 1 CAPSULE PO (08:37)
[2024-03-30] MEDS: PROTONIX 40 MG PO (08:38)
[2024-03-30] MEDS: HYDREA 500 MG PO ×2 (08:38→20:38)
[2024-03-30] MEDS: ASPIR LOW (ENTERIC COATED) 81 MG PO (08:38)
[2024-03-30] MEDS: CRESTOR 40 MG PO (08:38)
[2024-03-30] MEDS: FOLVITE 1 MG PO (08:38)
--- NOTE | 2024-03-30 08:53 | W.PN.PUL3 ---
Today's Communication / Plan
-
Follow up pleural studies
Given severely low pleural fluid pH and glucose <30, strongly recommend pleural fluid drainage with chest tube with tPA/Dornase
Daily CXR
Continue Abx; consider ID consult
Repeat imaging with CXR in 4-6 weeks
PT/OT
Pain control
Outpatient pulmonary office follow up for PFTs and radiographic follow up of this LLL pneumonia/effusion
Assessment
-
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 He denies any trauma. Found to have
loculated pleural effusion. He was also being worked up for achalasia and possible GI surgery in the next few months. We are asked to comment on his pulmonary process
Loculated left pleural effusion - suspected parapneumonic effusion given leukocytosis and fevers/chills prior to arrival and fevers since admitted
Mild pleural thickening
Likely chronic component as he was having left-sided symptoms for months (pleurisy, mild dyspnea)
LLL CAP
Chronic cough
Reported Hx of COPD on [facility] as an outpatient
Conditions present prior to admission
Hypertension/hyperlipidemia
History of achalasia
Followed by GI, awaiting for surgical intervention
GERD
37-[id number]-ohpm history of smoking, quit 2023
Family history of lung cancer (sister) sixth decade
Plan/recommendations
At this time, patient appears to be nontoxic
His left-sided chest discomfort has resolved since admission
Has some mild muscle spasms in that area
On further questioning, symptoms have been present for months
Family history of lung cancer noted
He admits to having fevers and chills few days prior to arrival
Moving forward
Continue with empiric antibiotics
Ceftriaxone/azithromycin is adequate
Favor long course of ABx for >2-3 weeks given complicated parapneumonic effusion; consider ID consult
Continue with inhaler therapy for reported history of COPD
Pt underwent L-sided thoracentesis today with mild improvement in his SOB and L-sided discomfort - removed 150cc, although CT Chest on 03/27/2024 shows LLL-loculated effusion so this is likely why only small amount was removed
Thoracentesis fluid studies suggestive of complicated parapneumonic effusion with pH <6.8, LDH 1409 and glucose <30 --> recommend drainage with chest tube with tPA/Dornase
Follow up micro and cyto
Pain control as needed
Repeat CXR tomorrow and daily after chest tube inserted while following chest tube output
If leukocytosis does not improve then consider ID consult to help decide duration of Abx, elizabeth if fluid Cx grows an organism
Once discharged, he will need repeat CXR in 4-6 weeks
Head of bed elevated, aspiration precautions given achalasia
DVT prophylaxis: Continue with enoxaparin
GI prophylaxis: Patient on Protonix
Will follow and will arrange for outpatient pulmonary follow up.
Total time spent today was 36 minutes for this encounter. Time includes reviewing laboratory test/imaging results, reviewing pertinent medical records, obtaining and reviewing medical history, performing an appropriate exam, ordering medications,
tests and procedures. Time also includes documentation of this encounter, coordinating patient care and communicating with other healthcare professionals. Total time does not include separately billed tests performed on this date of service.
Subjective Data
-
Date of Service:
Date of Service: March 30, 2024
Chief Complaint: Pulmonary Follow Up
Subjective:
Patient seen today at bedside. Had a thoracentesis today with 150 cc of clear yellow fluid removed. Fluid is exudative with glucose <30 and pH <6.8. He feels a little bit better since the thoracentesis. Febrile yesterday to 101.2 �F. Currently
denies left-sided chest pain, ZAMORA, nausea, fevers or chills.
Review of Systems
General: Other (Negative unless mentioned above)
Objective Data
Data Reviewed
Vital Signs / I&O / Oxygen:
Vital Signs
Temp Pulse Resp BP Pulse Ox
98.5 F 91 18 113/76 95
03/30/24 07:47 03/30/24 07:47 03/30/24 07:47 03/30/24 07:47 03/30/24 07:47
Intake and Output
03/29/24 03/30/24 03/31/24
06:59 06:59 06:59
Intake Total 960 / 960 1140 / 1140
Balance 960 / 960 1140 / 1140
SaO2 95
Nasal Cannula flow liters per 2
minute
Physical Exam
General: Respiratory Distress (negative), Comfortable, Chills (negative) and Sweats (negative)
HEENT: Normocephalic and Anicteric
Cardiovascular: S1-S2, Murmur (n) and Rub (n)
Respiratory: Wheeze (n), Crackles (left base), Rhonchi (n), Accessory Resp Muscle Use (negative) and Other (Decreased at the left base)
GI: Soft, Non Distended, Non Tender and Normal Bowel Sounds
Neurology: AO x 3 and Tremors (negative)
Skin: Warm, Dry, Cyanosis (n), Jaundice (n) and Rash (n)
Labs/Micro/Reports
Lab Data
03/30/24 08:21
Microbiology
03/27/24 17:06 Blood/Venous Blood Culture - Preliminary
No Growth in 48 hours- Final report to follow
03/27/24 16:57 Blood/Venous Blood Culture - Preliminary
No Growth in 48 hours- Final report to follow
03/28/24 05:34 Urine Legionella Urinary Antigen - Final
Negative for Legionella pneumophila Serogroup 1 antigen.
A negative result does not rule out the possiblity of
Legionella infection due to other serogroups or species of
Legionella. Clinical correlation is recommended.
03/27/24 23:57 Nasal Swab Influenza Types A & B (PORSCHE) - Final
Negative for Influenza A & B, NAAT
Negative results must be combined with clinical observations
and patient history.
Nucleic Acid Amplification test (NAAT)performed on the
[employer] platform.
[2024-03-30 09:13] LABS: % Basophils 0.2 % (0-2); % Eosinophils 0.5 % (0-6); % Immature Granulocytes 0.8 % (0-0.5); % Lymphocytes 8.5 % (20.5-51.1); % Monocytes 7.4 % (1.7-9.3); % Neutrophils 82.6 % (42.2-75.2); Absolute Eosinophils 0.1 10^3/uL (0-0.7); Absolute Immature Granulocytes 0.2 10^3/uL (0-0.05); Absolute Lymphocytes 1.8 10^3/uL (1.2-3.4); Absolute Monocytes 1.6 10^3/uL (0.1-0.6); Absolute Neutrophils 17.9 10^3/uL (1.4-6.5); Hematocrit 37.4 % (39.0-52.0); Hemoglobin 12.5 g/dL (13.0-18.0); Mean Corp Hgb Conc. 33.4 g/dL (33.0-37.0); Mean Corpuscular Volume 110.7 fL (80.0-94.0); Mean Platelet Volume 8.4 fL (7.4-10.4); Nucleated Red Blood Cells % 0 % (-); Platelet Count 294 10^3/uL (130-400); Red Blood Cell Count 3.38 10^6/uL (4.70-6.10); Red Cell Dist. Width 13.2 % (11.5-14.5); White Blood Cell Count 21.6 10^3/uL (4.8-10.8)
[2024-03-30 10:28] LABS: Blood Urea Nitrogen 22 mg/dl (9-20); Calcium 8.3 mg/dl (8.4-10.2); Carbon Dioxide 26 mmol/L (22-30); Chloride 96 mmol/L (98-107); Estimated Creatinine Clearance 89 ml/min; Glucose 128 mg/dl (70-99); Sodium 133 mmol/L (135-145); eGFR > 60.00
[2024-03-30 10:32] LABS: Potassium 3.7 mmol/L (3.5-5.1)
[2024-03-30 11:42] VITALS: BP 101/53
--- NOTE | 2024-03-30 12:19 | CM ---
Patient seen bedside.
Plan for thoracentesis today.
Discussed therapy recommendations for outptient therapy and patient in agreement.
Will need script.
Plan: home with outpatient therapy (script)
--- NOTE | 2024-03-30 12:33 | W.PN.HOSP.TC ---
Today's Communication/Plan
-
Continue current care
Assessment / Plan
Assessment / Plan
Gen-AAOx3, NAD
HEENT-NC, AT, anicteric, clear oral mm
Neck-supple
CV-reg, no M, +S1/S2
Lungs-clear B/L
Abd-soft, NT, ND
Ext-no edema
Musculoskeletal-no cyanosis, clubbing
Skin-warm and dry
Neuro-grossly non-focal
Psych-calm, cooperative
Sepsis due to community-acquired pneumonia -clinically improving despite persistent leukocytosis. Afebrile today. States he feels much better. Denies shortness of breath. Blood cultures negative. Currently on ceftriaxone, azithromycin, day 3 of
antibiotics.
Acute Hypoxic Respiratory Insufficiency (not on home oxygen)
- Was on oxygen, now on room air
- No recent antibiotic use
- Influenza and Legionella antigen negative
- Blood cultures with no growth to date
- Continue Ceftriaxone and Azithromycin which is adequate per pulmonary
- Chest x-ray in a.m. to confirm pleural effusion still present given significant improvement in symptoms
- IR to attempt thoracentesis tomorrow
- EKG in AM to check QTc given Azithromycin
- Pulmonary following
Hypokalemia -resolved.
Hyponatremia -likely due to pneumonia. Sodium stable.
Lactic Acidosis -due to sepsis, resolved.
Left pleural Effusion - loculated pleural effusion, moderate size, underwent thoracentesis today, fluid analysis pending.
Small Pericardial effusion - likely related to infection above. Echocardiogram completed, report pending.
Achalasia-Aspiration precautions
COPD - stable
- continue home inhaler (trelegy)
- prn nebs
- no indication for systemic steroids
DVT Prophylaxis: Lovenox subq
Code Status: Full Code
Dispo -patient requesting discharge home today. Still need to follow-up on echo results, thoracentesis results, pulmonary input. Discussed with patient. Check ambulatory pulse ox on room air. Discussed with nurse.
Anticipated Discharge: Within 24 hours
Subjective/Interval History
-
Date of Service: March 30, 2024
Patient seen and examined. No complaints.
Objective Data
-
Labs:
Laboratory Results
03/30/24
08:21
WBC 21.6 H
Hgb 12.5 L
Hct 37.4 L
Plt Count 294
Sodium 133 L
Potassium 3.7
Chloride 96 L
Carbon Dioxide 26
BUN 22 H
Creatinine 0.9
Glucose 128 H
Calcium 8.3 L
Vital Signs:
Vital Signs
Temp Pulse Resp BP Pulse Ox
98.5 F 87 14 101/53 95
03/30/24 07:47 03/30/24 11:42 03/30/24 11:42 03/30/24 11:42 03/30/24 07:47
I&O
03/29/24 03/30/24 03/31/24
06:59 06:59 06:59
Intake Total 960 / 960 1140 / 1140 300 / 300
Balance 960 / 960 1140 / 1140 300 / 300
Review of Systems
-
History Source: Patient
All other systems: Reviewed and negative
[2024-03-30 13:20] LABS: Body Fluid Mononuclear 8.3 %; Body Fluid Polymorphonuclear 91.7 %; Body Fluid WBC 1996 /CUMM
[2024-03-30 13:40] LABS: Body Fluid Amylase 35 U/L; Body Fluid Glucose < 30 mg/dl; Body Fluid Protein 5.2 g/dl
[2024-03-30 13:41] LABS: Body Fluid pH < 6.80
[2024-03-30 14:19] LABS: Body Fluid LDH 1409 U/L
[2024-03-30 15:02] LABS: Body Fluid Second Tech CF
[2024-03-30 15:23] VITALS: BP 126/67
[2024-03-30] MEDS: LOVENOX 40 MG SC (18:19)
[2024-03-30] MEDS: ZITHROMAX INFUSION 250 IV (18:20)
[2024-03-30] MEDS: ROCEPHIN 1000 MG IV (18:20)
[2024-03-30] MEDS: STERILE WATER FOR INJECTION 10 ML IV (18:20)
[2024-03-30 22:26] LABS: LDH 340 U/L (120-246)
[2024-03-30 23:00] VITALS: BP 124/63
[2024-03-31] VITALS (7 sets, daily range): BP systolic 76–135; BP diastolic 60–89; PULSE 81; O2SAT 91
[2024-03-31 06:42] LABS: % Basophils 0.4 % (0-2); % Eosinophils 1.4 % (0-6); % Immature Granulocytes 0.8 % (0-0.5); % Lymphocytes 11.8 % (20.5-51.1); % Monocytes 9.3 % (1.7-9.3); % Neutrophils 76.3 % (42.2-75.2); Absolute Basophils 0.1 10^3/uL (0-0.2); Absolute Eosinophils 0.2 10^3/uL (0-0.7); Absolute Immature Granulocytes 0.1 10^3/uL (0-0.05); Absolute Lymphocytes 1.8 10^3/uL (1.2-3.4); Absolute Monocytes 1.5 10^3/uL (0.1-0.6); Absolute Neutrophils 11.9 10^3/uL (1.4-6.5); Hematocrit 34.4 % (39.0-52.0); Hemoglobin 11.7 g/dL (13.0-18.0); Mean Corpuscular Hgb 37.3 pg (27.0-31.0); Mean Corpuscular Volume 109.6 fL (80.0-94.0); Mean Platelet Volume 8.6 fL (7.4-10.4); Nucleated Red Blood Cells % 0 % (-); Platelet Count 269 10^3/uL (130-400); Red Blood Cell Count 3.14 10^6/uL (4.70-6.10); Red Cell Dist. Width 13.3 % (11.5-14.5); White Blood Cell Count 15.6 10^3/uL (4.8-10.8)
[2024-03-31 07:00] LABS: ALT (SGPT) 141 U/L (0-50); AST (SGOT) 214 U/L (17-59); Alkaline Phosphatase 112 U/L (38-126); Blood Urea Nitrogen 20 mg/dl (9-20); Calcium 7.8 mg/dl (8.4-10.2); Carbon Dioxide 29 mmol/L (22-30); Chloride 97 mmol/L (98-107); Direct Bilirubin 0.4 mg/dl (0.0-0.4); Estimated Creatinine Clearance 89 ml/min; Glucose 117 mg/dl (70-99); Magnesium 2.4 mg/dl (1.6-2.3); Phosphorus 3.5 mg/dl (2.5-4.5); Potassium 3.6 mmol/L (3.5-5.1); Sodium 136 mmol/L (135-145); Total Bilirubin 0.7 mg/dl (0.2-1.3); Total Protein 5.9 g/dl (6.3-8.2); eGFR > 60.00
[2024-03-31] MEDS: SYMBICORT 80/4.5 MCG INHALER 2 PUFF INH ×2 (07:11→19:48)
[2024-03-31] MEDS: SPIRIVA RESPIMAT 2.5 MCG 2 PUFF INH (07:11)
[2024-03-31] MEDS: PROTONIX 40 MG PO (07:34)
[2024-03-31] MEDS: ZOFRAN 4 MG IV (07:34)
--- NOTE | 2024-03-31 07:54 | W.PN.PUL3 ---
Today's Communication / Plan
-
Follow up pleural studies
Given severely low pleural fluid pH and glucose <30, strongly recommend pleural fluid drainage with chest tube with tPA/Dornase --> to be placed today by IR
Daily CXR
Continue Abx; ID consulted
Repeat imaging with CXR in 4-6 weeks
PT/OT
Pain control
Outpatient pulmonary office follow up for PFTs and radiographic follow up of this LLL pneumonia/effusion
Assessment
-
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 He denies any trauma. Found to have
loculated pleural effusion. He was also being worked up for achalasia and possible GI surgery in the next few months. We are asked to comment on his pulmonary process
Loculated left pleural effusion - suspected parapneumonic effusion given leukocytosis and fevers/chills prior to arrival and fevers since admitted
Mild pleural thickening
Likely chronic component as he was having left-sided symptoms for months (pleurisy, mild dyspnea)
LLL CAP
Chronic cough
Reported Hx of COPD on [facility] as an outpatient
Conditions present prior to admission
Hypertension/hyperlipidemia
History of achalasia
Followed by GI, awaiting for surgical intervention
GERD
[id number] history of smoking, quit 2023
Family history of lung cancer (sister) sixth decade
Plan/recommendations
At this time, patient appears to be nontoxic
His left-sided chest discomfort has resolved since admission
Has some mild muscle spasms in that area
On further questioning, symptoms have been present for months
Family history of lung cancer noted
He admits to having fevers and chills few days prior to arrival
Moving forward
Continue with empiric antibiotics
ID consulted
Ceftriaxone/azithromycin changed to Unasyn by ID
Favor long course of ABx for >2-3 weeks given complicated parapneumonic effusion - defer duration to ID
Continue with inhaler therapy (Symbicort 80mcg + Spiriva) for reported history of COPD
Pt underwent L-sided thoracentesis on 03/30/2024 with mild improvement in his SOB and L-sided discomfort - removed 150cc, although CT Chest on 03/27/2024 shows LLL-loculated effusion so this is likely why only small amount was removed
Thoracentesis fluid studies suggestive of complicated parapneumonic effusion with pH <6.8, LDH 1409 and glucose <30 --> recommend drainage with chest tube with tPA/Dornase --> chest tube to be placed today by IR
Continue BID dosing of dornase + tPA to assist with loculated effusion drainage
Follow up micro and cyto
Pain control as needed
Daily CXR while following chest tube output
Once discharged, he will need repeat CXR in 4-6 weeks
Head of bed elevated, aspiration precautions given achalasia
DVT prophylaxis: Continue with enoxaparin
GI prophylaxis: Patient on Protonix
Will follow and will arrange for outpatient pulmonary follow up.
Total time spent today was 39 minutes for this encounter. Time includes reviewing laboratory test/imaging results, reviewing pertinent medical records, obtaining and reviewing medical history, performing an appropriate exam, ordering medications,
tests and procedures. Time also includes documentation of this encounter, coordinating patient care and communicating with other healthcare professionals. Total time does not include separately billed tests performed on this date of service.
Subjective Data
-
Date of Service:
Date of Service: March 31, 2024
Chief Complaint: Pulmonary Follow Up
Subjective:
Patient seen and evaluated today. Awaiting left-sided chest tube. No acute events reported overnight. Afebrile overnight.
Review of Systems
General: Other (Negative unless mentioned above)
Objective Data
Data Reviewed
Vital Signs / I&O / Oxygen:
Vital Signs
Temp Pulse Resp BP Pulse Ox
99.1 F 88 16 124/63 92
03/30/24 23:00 03/31/24 07:12 03/31/24 07:12 03/30/24 23:00 03/31/24 07:12
Intake and Output
03/30/24 03/31/24 04/01/24
06:59 06:59 06:59
Intake Total 1140 / 1140 780 / 780
Balance 1140 / 1140 780 / 780
SaO2 92
Nasal Cannula flow liters per 2
minute
Physical Exam
General: Respiratory Distress (negative), Comfortable, Chills (negative) and Sweats (negative)
HEENT: Normocephalic and Anicteric
Cardiovascular: S1-S2, Murmur (n) and Rub (n)
Respiratory: Wheeze (n), Crackles (left base), Rhonchi (n), Accessory Resp Muscle Use (negative) and Other (Decreased at the left base)
GI: Soft, Non Distended, Non Tender and Normal Bowel Sounds
Neurology: AO x 3 and Tremors (negative)
Skin: Warm, Dry, Cyanosis (n), Jaundice (n) and Rash (n)
Labs/Micro/Reports
Lab Data
03/31/24 05:55
03/31/24 05:55
Microbiology
03/27/24 17:06 Blood/Venous Blood Culture - Preliminary
No Growth in 72 hours- Final report to follow
03/27/24 16:57 Blood/Venous Blood Culture - Preliminary
No Growth in 72 hours- Final report to follow
03/30/24 11:23 Pleural Fluid Gram Stain - Preliminary
03/28/24 05:34 Urine Legionella Urinary Antigen - Final
Negative for Legionella pneumophila Serogroup 1 antigen.
A negative result does not rule out the possiblity of
Legionella infection due to other serogroups or species of
Legionella. Clinical correlation is recommended.
--- NOTE | 2024-03-31 07:55 | W.PN.HOSP.TC ---
Today's Communication/Plan
-
Chest tube
ID consult
Assessment / Plan
Assessment / Plan
Gen-AAOx3, NAD
HEENT-NC, AT, anicteric, clear oral mm
Neck-supple
CV-reg, no M, +S1/S2
Lungs-clear B/L
Abd-soft, NT, ND
Ext-no edema
Musculoskeletal-no cyanosis, clubbing
Skin-warm and dry
Neuro-grossly non-focal
Psych-calm, cooperative
Sepsis due to community-acquired pneumonia -clinically improving, WBCs trending down. Afebrile today. States he feels much better. Denies shortness of breath. Blood cultures negative. Currently on ceftriaxone, azithromycin, day 4 of antibiotics.
Left-sided parapneumonic effusion/empyema - pH 6.8 on fluid analysis. Exudative based on lights criteria. Awaiting chest tube placement by IR. Consult ID.
Acute Hypoxic Respiratory Insufficiency -due to community-acquired pneumonia, pleural effusion.
Hypokalemia -resolved.
Hyponatremia -likely due to pneumonia. Sodium improved.
Lactic Acidosis -due to sepsis, resolved.
Small Pericardial effusion -noted on CT but ruled out on echocardiogram.
Achalasia-Aspiration precautions
COPD - stable
- continue home inhaler (trelegy)
- prn nebs
- no indication for systemic steroids
DVT Prophylaxis: Lovenox subq
Code Status: Full Code
Anticipated Discharge: > 48 hours
Subjective/Interval History
-
Date of Service: March 31, 2024
Patient seen and examined. No complaints.
Objective Data
-
Labs:
Laboratory Results
03/31/24
05:55
WBC 15.6 H
Hgb 11.7 L
Hct 34.4 L
Plt Count 269
Sodium 136
Potassium 3.6
Chloride 97 L
Carbon Dioxide 29
BUN 20
Creatinine 0.9
Glucose 117 H
Calcium 7.8 L
Total Bilirubin 0.7
AST 214 H
ALT 141 H
Alkaline Phosphatase 112
Vital Signs:
Vital Signs
Temp Pulse Resp BP Pulse Ox
99.1 F 88 16 124/63 92
03/30/24 23:00 03/31/24 07:12 03/31/24 07:12 03/30/24 23:00 03/31/24 07:12
I&O
03/30/24 03/31/24 04/01/24
06:59 06:59 06:59
Intake Total 1140 / 1140 780 / 780
Balance 1140 / 1140 780 / 780
Review of Systems
-
History Source: Patient
All other systems: Reviewed and negative
--- NOTE | 2024-03-31 14:28 | CM ---
patient for possible chest tube today.
Continue IV anbx.
Plan: watch for d/c needs.
--- NOTE | 2024-03-31 15:13 | CON.ID ---
Consultation
-
Date/Time Consultation Requested: March 31, 2024 0755
Date/Time Consultation Performed: March 31, 2024 1500
Requesting Provider: Dr. Jairo Yip
Performing Provider: Dr. Cherie Bustamante
Reason for Consultation: Empyema
Chief Complaint / Past History
Chief Complaint
Chest discomfort
History of Present Illness
68-year-old male with COPD, hypertension achalasia presented to the hospital on March 27 due to 1 week history of left-sided chest discomfort. Patient has been having dysphagia with solid foods since 2023. Workup showed achalasia. He then
developed left side discomfort especially with deep inspiration for which he came to the ER. White count was 20.6. Initially he was febrile afebrile but then developed temperature 102.6 later in the day. CT of the chest showed moderate left
pleural effusion with loculation, patchy parenchymal opacity within the left mid to lower lung. He was started on ceftriaxone and azithromycin. On March 30 he underwent thoracentesis of clear pleural fluid, fluid analysis showed exudate; culture
negative to date. Patient is awaiting for chest tube placement. No fever at home. He has intermittent cough. No sinus congestion. No diarrhea.
Past History
Additional Past Medical History:
Achalasia
COPD
Hypertension
HLD
Small bowel obstruction status post bowel resection
MOHs
Allergy History:
No Known Allergies Allergy (Verified 03/27/24 11:35)
Medications Reviewed: Yes
Current Antibiotics:
Ceftriaxone
Azithromycin
Social History
Tobacco: Former Smoker
Alcohol: Occasional
Drug: None
Personal:
Family History
Family History: Not Pertinent
Review of Systems
Review of Systems
General: Change in Appetite
HEENT: Negative Sinus Problems, Headache or Pharyngitis
Respiratory: Cough
Gasteroenterology: Negative Nausea, Vomiting or Diarrhea
Genital / Urological: Negative Dysuria or Flank Pain
Endocrine: Negative Weakness
All systems: All other systems were reviewed and were negative
Vital Signs
Temp Pulse Resp BP Pulse Ox
97.5 F 88 16 122/72 92
03/31/24 07:05 03/31/24 07:12 03/31/24 07:12 03/31/24 07:05 03/31/24 07:12
Selected Entries
03/29/24
15:49
Temp 101.2 F H
Physical Exam
Physical Exam
Constitutional: No Acute Distress and Comfortable
Eyes: No Conjunctival Hemorrhage and Sclera Anicteric
Oral: Other (Good dentition.)
Cardiovascular: Regular Rate and S1/S2
Pulmonary: Other (Left base crackles, decreased BS)
Gastrointestinal: Soft, Non Tender, Non Distended and Normal Bowel Sounds
Extremities: Negative Edema
Musculoskeletal: Negative Spinal Tenderness
Neurological: AO x 3
Lab / Diagnostic Study Results
03/31/24 05:55
03/31/24 05:55
Abs Immat Gran (auto) 0.1 10^3/uL (0-0.05) H 03/31/24 05:55
Absolute Neuts (auto) 11.9 10^3/uL (1.4-6.5) H 03/31/24 05:55
Absolute Lymphs (auto) 1.8 10^3/uL (1.2-3.4) 03/31/24 05:55
Absolute Monos (auto) 1.5 10^3/uL (0.1-0.6) H 03/31/24 05:55
Absolute Basos (auto) 0.1 10^3/uL (0-0.2) 03/31/24 05:55
Immature Gran % 0.8 % (0-0.5) H 03/31/24 05:55
Neutrophils % 76.3 % (42.2-75.2) H 03/31/24 05:55
Lymphocytes % 11.8 % (20.5-51.1) L 03/31/24 05:55
Monocytes % 9.3 % (1.7-9.3) 03/31/24 05:55
Eosinophils % 1.4 % (0-6) 03/31/24 05:55
Basophils % 0.4 % (0-2) 03/31/24 05:55
Lactic Acid 1.7 mmol/L (0.7-2.0) 03/27/24 23:57
Microbiology Results
Micro:
03/30/24 11:23 Body Fluid Culture - Preliminary
Pleural Fluid No Growth After 18-24 Hours
Gram Stain - Preliminary
03/27/24 17:06 Blood Culture - Preliminary
Blood/Venous No Growth in 72 hours- Final report to follow
03/27/24 16:57 Blood Culture - Preliminary
Blood/Venous No Growth in 72 hours- Final report to follow
03/28/24 05:34 Legionella Urinary Antigen - Final
Urine Negative for Legionella pneumophila Serogroup 1 antigen.
A negative result does not rule out the possiblity of
Legionella infection due to other serogroups or species of
Legionella. Clinical correlation is recommended.
03/27/24 23:57 Influenza Types A & B (PORSCHE) - Final
Nasal Swab Negative for Influenza A & B, NAAT
Negative results must be combined with clinical observations
and patient history.
Nucleic Acid Amplification test (NAAT)performed on the
[facility] platform.
03/27/[address]: Moderate left pleural effusion with loculation. Patchy parenchymal opacity within the left mid to lower lung, with main differential considerations of atelectasis and/or pneumonia. Moderate diffuse dilation of the esophagus,
extending to the gastroesophageal junction, with no gross evidence for a focal obstructing mass. Of note, this is a similar appearance to upper GI series from March 16, 2024, and the patient has a reported history of achalasia.
03/16/24 UGI Achalasia. During the bulk of the examination, the lower esophageal sphincter was contracted, however, intermittently, it distended to as much as 6 mm.
The thoracic esophagus is mildly dilated measuring 2 cm in diameter and did not completely drain during the course of the study with retained barium in the esophagus to the level of the aortic arch and tertiary contractions in the esophagus.
Assessment / Plan
# Probable left empyema
-Risk factor: dysphagia from achalasia
-Thoracentesis cx neg to date (pt on abx's at the time)
- Chest tube placement today
-DC ceftriaxone, azithromycin
- Start Unasyn.
# Fever and leukocytosis due to empyema
-blood cx's neg
- trend wbc/temps
--- NOTE | 2024-03-31 15:42 | PN.IRAD.UPD ---
Update Note - IRAD
- -
8mg TPA, 5 MG DORNASE instilled via left chest tube. Catheter clamped at 1315. Patient tolerated procedure well.
[2024-03-31 16:24] LABS: Body Fluid pH 7.5
[2024-03-31 16:35] LABS: Body Fluid Glucose 100 mg/dl; Body Fluid LDH 651 U/L; Body Fluid Protein 4.8 g/dl
[2024-03-31] MEDS: LOTREL 5 MG/20 MG 1 CAPSULE PO (16:38)
[2024-03-31] MEDS: HYDREA 500 MG PO ×2 (16:38→19:34)
[2024-03-31] MEDS: FOLVITE 1 MG PO (16:38)
[2024-03-31] MEDS: ASPIR LOW (ENTERIC COATED) 81 MG PO (16:38)
[2024-03-31] MEDS: CRESTOR 40 MG PO (16:38)
[2024-03-31] MEDS: LOVENOX 40 MG SC (17:32)
[2024-03-31] MEDS: UNASYN IV (17:33)
[2024-03-31 17:59] LABS: Body Fluid Mononuclear 66.8 %; Body Fluid Polymorphonuclear 33.2 %; Body Fluid WBC 181 /CUMM
[2024-03-31 18:02] LABS: Body Fluid Second Tech HB
[2024-03-31] MEDS: TORADOL 15 MG IV (19:38)
[2024-03-31] MEDS: MORPHINE SULFATE 1 MG IV (20:08)
[2024-03-31 20:38] LABS: Hematocrit 34.7 % (39.0-52.0); Hemoglobin 11.8 g/dL (13.0-18.0); Mean Corpuscular Hgb 36.8 pg (27.0-31.0); Mean Corpuscular Volume 108.1 fL (80.0-94.0); Mean Platelet Volume 8.5 fL (7.4-10.4); Platelet Count 277 10^3/uL (130-400); Red Blood Cell Count 3.21 10^6/uL (4.70-6.10); Red Cell Dist. Width 13.5 % (11.5-14.5); White Blood Cell Count 12.7 10^3/uL (4.8-10.8)
[2024-03-31 20:55] LABS: Blood Urea Nitrogen 21 mg/dl (9-20); Calcium 7.7 mg/dl (8.4-10.2); Carbon Dioxide 26 mmol/L (22-30); Estimated Creatinine Clearance 100 ml/min; Glucose 225 mg/dl (70-99); Magnesium 2.4 mg/dl (1.6-2.3); eGFR > 60.00
[2024-03-31 20:58] LABS: Troponin I < 0.012 ng/ml
[2024-03-31 21:02] LABS: Chloride 96 mmol/L (98-107); Potassium 3.7 mmol/L (3.5-5.1); Sodium 132 mmol/L (135-145)
[2024-04-01] MEDS: UNASYN IV ×5 (00:02→23:10)
[2024-04-01 03:00] VITALS: BP 114/70
[2024-04-01 07:00] VITALS: BP 120/73
[2024-04-01 07:08] LABS: % Basophils 0.4 % (0-2); % Eosinophils 1.7 % (0-6); % Immature Granulocytes 1.2 % (0-0.5); % Lymphocytes 16.8 % (20.5-51.1); % Monocytes 11.9 % (1.7-9.3); Absolute Eosinophils 0.2 10^3/uL (0-0.7); Absolute Immature Granulocytes 0.1 10^3/uL (0-0.05); Absolute Lymphocytes 1.7 10^3/uL (1.2-3.4); Absolute Monocytes 1.2 10^3/uL (0.1-0.6); Hematocrit 33.2 % (39.0-52.0); Hemoglobin 11.4 g/dL (13.0-18.0); Mean Corp Hgb Conc. 34.3 g/dL (33.0-37.0); Mean Corpuscular Hgb 37.4 pg (27.0-31.0); Mean Corpuscular Volume 108.9 fL (80.0-94.0); Mean Platelet Volume 8.7 fL (7.4-10.4); Nucleated Red Blood Cells % 0 % (-); Platelet Count 275 10^3/uL (130-400); Red Blood Cell Count 3.05 10^6/uL (4.70-6.10); Red Cell Dist. Width 13.5 % (11.5-14.5); White Blood Cell Count 10.3 10^3/uL (4.8-10.8)
[2024-04-01] MEDS: SPIRIVA RESPIMAT 2.5 MCG 2 PUFF INH (07:27)
[2024-04-01] MEDS: SYMBICORT 80/4.5 MCG INHALER 2 PUFF INH ×2 (07:28→19:34)
[2024-04-01 07:34] LABS: ALT (SGPT) 152 U/L (0-50); AST (SGOT) 213 U/L (17-59); Albumin 2.6 g/dl (3.5-5.0); Alkaline Phosphatase 123 U/L (38-126); Blood Urea Nitrogen 19 mg/dl (9-20); Calcium 7.8 mg/dl (8.4-10.2); Carbon Dioxide 29 mmol/L (22-30); Chloride 94 mmol/L (98-107); Estimated Creatinine Clearance 100 ml/min; Glucose 120 mg/dl (70-99); Potassium 3.4 mmol/L (3.5-5.1); Sodium 134 mmol/L (135-145); Total Bilirubin 0.8 mg/dl (0.2-1.3); Total Protein 5.3 g/dl (6.3-8.2); eGFR > 60.00
[2024-04-01] MEDS: CRESTOR 40 MG PO (08:01)
[2024-04-01] MEDS: PROTONIX 40 MG PO (08:01)
[2024-04-01] MEDS: FOLVITE 1 MG PO (08:01)
[2024-04-01] MEDS: ASPIR LOW (ENTERIC COATED) 81 MG PO (08:01)
[2024-04-01] MEDS: HYDREA 500 MG PO ×2 (08:01→19:47)
[2024-04-01] MEDS: LOTREL 5 MG/20 MG 1 CAPSULE PO (08:01)
--- NOTE | 2024-04-01 11:39 | W.PN.HOSP.TC ---
Addendum entered and electronically signed by Jairo Yip DO 04/01/24 12:54:
sepsis only
Original Note:
Today's Communication/Plan
-
Oral potassium
Continue antibiotics
Assessment / Plan
Assessment / Plan
Gen-AAOx3, NAD
HEENT-NC, AT, anicteric, clear oral mm
Neck-supple
CV-reg, no M, +S1/S2
Lungs-clear B/L
Abd-soft, NT, ND
Ext-no edema
Musculoskeletal-no cyanosis, clubbing
Skin-warm and dry
Neuro-grossly non-focal
Psych-calm, cooperative
Sepsis due to community-acquired pneumonia, empyema -clinically improving, WBCs trending down. Afebrile today. States he feels much better. Denies shortness of breath. Blood cultures negative. IV Unasyn per infectious disease.
Suspect achalasia as the predisposing factor for the pneumonia and empyema. Discussed with patient.
Left-sided parapneumonic effusion/empyema - pH 6.8 on fluid analysis. Exudative based on lights criteria. Chest tube placed March 31 by IR. Chest x-ray today shows decreased loculated left pleural effusion.
Acute Hypoxic Respiratory Insufficiency -due to community-acquired pneumonia, pleural effusion. Still has exertional hypoxia with pulse ox dropping into the 80% range. Normal at rest. 2 L nasal cannula to continue.
Hypokalemia -3.4, will replete.
Hyponatremia -likely due to pneumonia. Sodium stable.
Impaired fasting glucose -hemoglobin A1c 6.4%. Diet, exercise, weight loss recommended. Discussed with patient. Follow-up with PCP.
Lactic Acidosis -due to sepsis, resolved.
Small Pericardial effusion -noted on CT but ruled out on echocardiogram.
Achalasia -Aspiration precautions. Scheduled to follow-up as an outpatient in April.
COPD - stable
- continue home inhaler (trelegy)
- prn nebs
- no indication for systemic steroids
DVT Prophylaxis: Lovenox subq
Code Status: Full Code
Anticipated Discharge: > 48 hours
Subjective/Interval History
-
Date of Service: April 01, 2024
Patient seen and examined. No complaints.
Objective Data
-
Labs:
Laboratory Results
04/01/24
06:36
WBC 10.3
Hgb 11.4 L
Hct 33.2 L
Plt Count 275
Sodium 134 L
Potassium 3.4 L
Chloride 94 L
Carbon Dioxide 29
BUN 19
Creatinine 0.8
Glucose 120 H
Calcium 7.8 L
Total Bilirubin 0.8
AST 213 H
ALT 152 H
Alkaline Phosphatase 123
Vital Signs:
Vital Signs
Temp Pulse Resp BP Pulse Ox
98.2 F 64 16 120/73 96
04/01/24 07:00 04/01/24 07:34 04/01/24 07:34 04/01/24 08:01 04/01/24 08:00
I&O
03/31/24 04/01/24 04/02/24
06:59 06:59 06:59
Intake Total 780 / 780 920 / 920
Output Total 866 / 866
Balance 780 / 780 54 / 54
Review of Systems
-
History Source: Patient
All other systems: Reviewed and negative
--- NOTE | 2024-04-01 12:25 | PN.CDI ---
CDI
- -
CDI:
Physician Documentation Request
Admit Date: 03/27/24 20:47
Dear Doctor Phi,
Patient admitted with sepsis due to community-acquired pneumonia, empyema
LA on 03/27 2.5
Please clarify which of the following most accurately describes the status of the patient's infection:
Severe Sepsis
Sepsis only
Other
Use of terms such as suspected, likely, concern for, or probable (associated with a specific diagnosis that is being evaluated, monitored, or treated as if it exists) are acceptable and can be coded in the inpatient setting, when documented at the
time of discharge.
Thank you,
June Cuba RN, BSN
CDI Specialist
tiger text
Please use your independent medical judgment in providing your response.
[2024-04-01] MEDS: KCL 40 MEQ PO (12:26)
--- NOTE | 2024-04-01 13:01 | W.PN.PUL3 ---
Today's Communication / Plan
-
Continue chest tube drainage
Chest x-ray with improvement today
tPA/dornase either tonight or tomorrow a.m. per interventional radiology
Daily chest x-ray
Continue antibiotics
Assessment
-
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 He denies any trauma. Found to have
loculated pleural effusion. He was also being worked up for achalasia and possible GI surgery in the next few months. We are asked to comment on his pulmonary process
Loculated left pleural effusion - suspected parapneumonic effusion given leukocytosis and fevers/chills prior to arrival and fevers since admitted
Mild pleural thickening
Likely chronic component as he was having left-sided symptoms for months (pleurisy, mild dyspnea)
LLL CAP
Chronic cough
Reported Hx of COPD on [facility] as an outpatient
Conditions present prior to admission
Hypertension/hyperlipidemia
History of achalasia
Followed by GI, awaiting for surgical intervention
GERD
[id number] history of smoking, quit 2023
Family history of lung cancer (sister) sixth decade
Plan/recommendations
At this time, patient appears to be nontoxic, sleeping comfortably
Has had symptoms for months according to patient
Family history of lung cancer noted
He admits to having fevers and chills few days prior to arrival
Moving forward
Continue with empiric antibiotics
ID following, currently on Unasyn
Continue with inhaler therapy (Symbicort 80mcg + Spiriva) for reported history of COPD
Pt underwent L-sided thoracentesis on 03/30/2024 with mild improvement in his SOB and L-sided discomfort - removed 150cc, although CT Chest on 03/27/2024 shows LLL-loculated effusion so this is likely why only small amount was removed
Status post chest tube placement, tPA/dornase, 500 cc drained over the last 24 hours
Continue with tPA/dornase either today or tomorrow. Reviewed with interventional radiology
Follow up micro and cyto
Pain control as needed
Daily CXR while following chest tube output
Once discharged, he will need repeat CXR in 4-6 weeks
Head of bed elevated, aspiration precautions given achalasia
DVT prophylaxis: Continue with enoxaparin
GI prophylaxis: Patient on Protonix
Disposition efforts
Subjective Data
-
Date of Service:
Date of Service: April 01, 2024
Chief Complaint: Pulmonary Follow Up
Subjective:
Patient currently sleeping. Did not awaken during exam. Chest tube in place, intermittent airleak noted. Patient on room air
Objective Data
Data Reviewed
Vital Signs / I&O / Oxygen:
Vital Signs
Temp Pulse Resp BP Pulse Ox
98.2 F 64 16 120/73 96
04/01/24 07:00 04/01/24 07:34 04/01/24 07:34 04/01/24 08:01 04/01/24 08:00
Intake and Output
03/31/24 04/01/24 04/02/24
06:59 06:59 06:59
Intake Total 780 / 780 920 / 920
Output Total 866 / 866
Balance 780 / 780 54 / 54
SaO2 96
Nasal Cannula flow liters per 2
minute
Physical Exam
General: Respiratory Distress (negative) and Comfortable
HEENT: Normocephalic
Cardiovascular: S1-S2, Murmur (n) and Rub (n)
Respiratory: Wheeze (n), Rhonchi (n), Non-Labored Respirations and Other (Decreased at the left base)
GI: Soft, Non Distended, Non Tender and Normal Bowel Sounds
Neurology: Lethargic (Sleeping comfortably)
Labs/Micro/Reports
Lab Data
04/01/24 06:36
04/01/24 06:36
Microbiology
03/31/24 15:43 Pleural Fluid Body Fluid Culture - Preliminary
No Growth After 18-24 Hours
03/31/24 15:43 Pleural Fluid Gram Stain - Preliminary
03/30/24 11:23 Pleural Fluid Body Fluid Culture - Preliminary
No Growth After 48 Hours
03/30/24 11:23 Pleural Fluid Gram Stain - Preliminary
04/01/24 02:47 Urine Streptococcus pneumoniae Antigen (M - Final
Negative for Streptococcus pneumoniae antigen.
A negative result does not exclude infection with
Streptococcus pneumoniae. Clinical correlation is
recommended.
03/27/24 17:06 Blood/Venous Blood Culture - Preliminary
No Growth in 4 days- Final report to follow
03/27/24 16:57 Blood/Venous Blood Culture - Preliminary
No Growth in 4 days- Final report to follow
--- NOTE | 2024-04-01 14:22 | CM ---
patient s/p chest tube placement.
Continue IV anbx.
Plan: watch for d/c needs.
--- NOTE | 2024-04-01 14:34 | W.PN.ID1 ---
Date of Service
Date of Service: April 01, 2024
Today's Communication
Continue Unasyn.
Assessment / Plan
# Probable left empyema
-Risk factor: dysphagia from achalasia
-Thoracentesis cx neg to date (pt on abx's at the time)
- 2/4 s/p Chest tube placement, pleurolysis. Fluid exudative
Pleural fluid cx neg to date
- Continue Unasyn.
# Fever and leukocytosis resolved
-blood cx's neg
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
Achalasia
COPD
Hypertension
HLD
Small bowel obstruction status post bowel resection
Chief Complaint
-: Pneumonia and Other (empyema)
Subjective / Review of Systems
Soreness at chest tube site
Vital Signs / Physical Exam
Vital Signs
Vital Signs
Temp Pulse Resp BP Pulse Ox
98.2 F 64 16 120/73 96
04/01/24 07:00 04/01/24 07:34 04/01/24 07:34 04/01/24 08:01 04/01/24 08:00
Physical Exam
Constitutional: No Acute Distress
Cardiovascular: Regular Rate and S1/S2
Pulmonary: Other (decreased BS left base. Chest tube in place)
Gastrointestinal: Soft, Non Tender, Non Distended and Normal Bowel Sounds
Neurological: AO x 3
Objective Data
Lab Data
Lab Results
04/01/24 06:36
04/01/24 06:36
Estimated Creat Clear 100 ml/min 04/01/24 06:36
Lactic Acid 1.7 mmol/L (0.7-2.0) 03/27/24 23:57
Total Bilirubin 0.8 mg/dl (0.2-1.3) 04/01/24 06:36
AST 213 U/L (17-59) H 04/01/24 06:36
ALT 152 U/L (0-50) H 04/01/24 06:36
Alkaline Phosphatase 123 U/L (38-126) 04/01/24 06:36
Most recent labs reviewed.
Micro Results:
03/31/24 15:43 Body Fluid Culture - Preliminary
Pleural Fluid No Growth After 18-24 Hours
Gram Stain - Preliminary
03/30/24 11:23 Body Fluid Culture - Preliminary
Pleural Fluid No Growth After 48 Hours
Gram Stain - Preliminary
04/01/24 02:47 Streptococcus pneumoniae Antigen (M - Final
Urine Negative for Streptococcus pneumoniae antigen.
A negative result does not exclude infection with
Streptococcus pneumoniae. Clinical correlation is
recommended.
03/27/24 17:06 Blood Culture - Preliminary
Blood/Venous No Growth in 4 days- Final report to follow
03/27/24 16:57 Blood Culture - Preliminary
Blood/Venous No Growth in 4 days- Final report to follow
03/31/24 15:44 Fungal Culture - Pending
Pleural Fluid
03/31/24 15:44 Acid Fast Bacilli Smear - Pending
Pleural Fluid Acid Fast Bacilli Culture - Pending
03/28/24 05:34 Legionella Urinary Antigen - Final
Urine Negative for Legionella pneumophila Serogroup 1 antigen.
A negative result does not rule out the possiblity of
Legionella infection due to other serogroups or species of
Legionella. Clinical correlation is recommended.
03/27/24 23:57 Influenza Types A & B (PORSCHE) - Final
Nasal Swab Negative for Influenza A & B, NAAT
Negative results must be combined with clinical observations
and patient history.
Nucleic Acid Amplification test (NAAT)performed on the
[employer] platform.
03/27/[address]: Moderate left pleural effusion with loculation. Patchy parenchymal opacity within the left mid to lower lung, with main differential considerations of atelectasis and/or pneumonia. Moderate diffuse dilation of the esophagus,
extending to the gastroesophageal junction, with no gross evidence for a focal obstructing mass. Of note, this is a similar appearance to upper GI series from March 16, 2024, and the patient has a reported history of achalasia.
03/16/24 UGI Achalasia. During the bulk of the examination, the lower esophageal sphincter was contracted, however, intermittently, it distended to as much as 6 mm.
The thoracic esophagus is mildly dilated measuring 2 cm in diameter and did not completely drain during the course of the study with retained barium in the esophagus to the level of the aortic arch and tertiary contractions in the esophagus.
[2024-04-01 15:00] VITALS: BP 112/66
[2024-04-01] MEDS: LOVENOX 40 MG SC (17:45)
[2024-04-01 17:55] LABS: GGTP 19 U/L (15-73)
[2024-04-01] MEDS: KCL 20 MEQ PO (19:47)
[2024-04-01 23:01] VITALS: BP 110/69
[2024-04-02] MEDS: UNASYN IV ×4 (05:34→23:13)
[2024-04-02] MEDS: SYMBICORT 80/4.5 MCG INHALER 2 PUFF INH ×2 (07:40→20:14)
[2024-04-02] MEDS: SPIRIVA RESPIMAT 2.5 MCG 2 PUFF INH (07:40)
[2024-04-02 07:43] VITALS: BP 139/80
[2024-04-02 08:19] LABS: ALT (SGPT) 150 U/L (0-50); AST (SGOT) 187 U/L (17-59); Albumin 2.4 g/dl (3.5-5.0); Alkaline Phosphatase 128 U/L (38-126); Blood Urea Nitrogen 13 mg/dl (9-20); Calcium 7.7 mg/dl (8.4-10.2); Carbon Dioxide 32 mmol/L (22-30); Chloride 99 mmol/L (98-107); Estimated Creatinine Clearance 114 ml/min; Glucose 120 mg/dl (70-99); Potassium 3.8 mmol/L (3.5-5.1); Sodium 136 mmol/L (135-145); Total Bilirubin 0.5 mg/dl (0.2-1.3); Total Protein 5.1 g/dl (6.3-8.2); eGFR > 60.00
[2024-04-02] MEDS: FOLVITE 1 MG PO (09:01)
[2024-04-02] MEDS: LOTREL 5 MG/20 MG 1 CAPSULE PO (09:01)
[2024-04-02] MEDS: PROTONIX 40 MG PO (09:02)
[2024-04-02] MEDS: HYDREA 500 MG PO ×2 (09:02→19:59)
[2024-04-02] MEDS: KCL 20 MEQ PO ×2 (09:02→19:59)
[2024-04-02] MEDS: ASPIR LOW (ENTERIC COATED) 81 MG PO (09:02)
[2024-04-02] MEDS: TYLENOL 650 MG PO ×2 (09:08→17:10)
--- NOTE | 2024-04-02 10:47 | PN.IRAD.UPD ---
Update Note - IRAD
- -
TPA/Dornase instilled into left chest tube as ordered by Latanya De Jesus. Tube clamped and patient instructed to roll every 15 mins as tolerated. (back, side, back)
--- NOTE | 2024-04-02 12:06 | W.PN.ID1 ---
Date of Service
Date of Service: April 02, 2024
Today's Communication
Continue Unasyn
Assessment / Plan
# Probable left empyema
-Risk factor: dysphagia from achalasia
-Thoracentesis cx neg to date (pt on abx's at the time)
- 2/4 s/p Chest tube placement, pleurolysis. Fluid exudative
Pleural fluid cx neg to date
- Continue Unasyn d3
# Fever and leukocytosis resolved
-blood cx's neg
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
Achalasia
COPD
Hypertension
HLD
Small bowel obstruction status post bowel resection
Chief Complaint
-: Pneumonia and Other (empyema)
Vital Signs / Physical Exam
Vital Signs
Vital Signs
Temp Pulse Resp BP Pulse Ox
98.8 F 72 16 139/80 94
04/02/24 07:43 04/02/24 07:46 04/02/24 07:46 04/02/24 07:43 04/02/24 07:46
Physical Exam
Constitutional: No Acute Distress
Cardiovascular: Regular Rate and S1/S2
Pulmonary: Other (decreased BS left base. Chest tube in place with clear serous output)
Gastrointestinal: Soft, Non Tender, Non Distended and Normal Bowel Sounds
Neurological: AO x 3
Objective Data
Lab Data
Lab Results
04/01/24 06:36
04/02/24 07:05
Estimated Creat Clear 114 ml/min 04/02/24 07:05
Lactic Acid 1.7 mmol/L (0.7-2.0) 03/27/24 23:57
Total Bilirubin 0.5 mg/dl (0.2-1.3) 04/02/24 07:05
GGT 19 U/L (15-73) 04/01/24 06:36
AST 187 U/L (17-59) H 04/02/24 07:05
ALT 150 U/L (0-50) H 04/02/24 07:05
Alkaline Phosphatase 128 U/L (38-126) H 04/02/24 07:05
Most recent labs reviewed.
Micro Results:
03/30/24 11:23 Body Fluid Culture - Final
Pleural Fluid No Growth After 72 Hours
Gram Stain - Final
03/31/24 15:43 Body Fluid Culture - Preliminary
Pleural Fluid No Growth After 48 Hours
Gram Stain - Preliminary
03/27/24 17:06 Blood Culture - Final
Blood/Venous No Growth - Final Report
03/27/24 16:57 Blood Culture - Final
Blood/Venous No Growth - Final Report
04/01/24 02:47 Streptococcus pneumoniae Antigen (M - Final
Urine Negative for Streptococcus pneumoniae antigen.
A negative result does not exclude infection with
Streptococcus pneumoniae. Clinical correlation is
recommended.
03/31/24 15:44 Fungal Culture - Pending
Pleural Fluid
03/31/24 15:44 Acid Fast Bacilli Smear - Pending
Pleural Fluid Acid Fast Bacilli Culture - Pending
03/28/24 05:34 Legionella Urinary Antigen - Final
Urine Negative for Legionella pneumophila Serogroup 1 antigen.
A negative result does not rule out the possiblity of
Legionella infection due to other serogroups or species of
Legionella. Clinical correlation is recommended.
03/27/24 23:57 Influenza Types A & B (PORSCHE) - Final
Nasal Swab Negative for Influenza A & B, NAAT
Negative results must be combined with clinical observations
and patient history.
Nucleic Acid Amplification test (NAAT)performed on the
[employer] platform.
03/27/[address]: Moderate left pleural effusion with loculation. Patchy parenchymal opacity within the left mid to lower lung, with main differential considerations of atelectasis and/or pneumonia. Moderate diffuse dilation of the esophagus,
extending to the gastroesophageal junction, with no gross evidence for a focal obstructing mass. Of note, this is a similar appearance to upper GI series from March 16, 2024, and the patient has a reported history of achalasia.
03/16/24 UGI Achalasia. During the bulk of the examination, the lower esophageal sphincter was contracted, however, intermittently, it distended to as much as 6 mm.
The thoracic esophagus is mildly dilated measuring 2 cm in diameter and did not completely drain during the course of the study with retained barium in the esophagus to the level of the aortic arch and tertiary contractions in the esophagus.
--- NOTE | 2024-04-02 13:06 | W.PN.HOSP.TC ---
Today's Communication/Plan
-
Continue current care
Assessment / Plan
Assessment / Plan
Gen-AAOx3, NAD
HEENT-NC, AT, anicteric, clear oral mm
Neck-supple
CV-reg, no M, +S1/S2
Lungs-clear B/L
Abd-soft, NT, ND
Ext-no edema
Musculoskeletal-no cyanosis, clubbing
Skin-warm and dry
Neuro-grossly non-focal
Psych-calm, cooperative
Sepsis due to community-acquired pneumonia, empyema -clinically improving, WBCs trending down. Afebrile today. States he feels much better. Denies shortness of breath. Blood cultures negative. IV Unasyn per infectious disease.
Suspect achalasia as the predisposing factor for the pneumonia and empyema. Discussed with patient.
Discussed with patient to try to sleep with the head elevated.
Left-sided parapneumonic effusion/empyema - pH 6.8 on fluid analysis. Exudative based on lights criteria. Chest tube placed March 31 by IR. tPA and dornase injected in the chest tube today by IR. Follow-up with daily chest x-rays.
Chest x-rays overall are improving.
Acute Hypoxic Respiratory Insufficiency -due to community-acquired pneumonia, pleural effusion. Still has exertional hypoxia with pulse ox dropping into the 80% range. Normal at rest. 2 L nasal cannula to continue.
Hypokalemia - improved.
Hyponatremia -likely due to pneumonia. Sodium improved.
Elevated transaminases -possibly drug-induced hepatitis, may be from ceftriaxone. Discontinued. LFTs improving. GGT was normal.
Impaired fasting glucose -hemoglobin A1c 6.4%. Diet, exercise, weight loss recommended. Discussed with patient. Follow-up with PCP.
Lactic Acidosis -due to sepsis, resolved.
Small Pericardial effusion -noted on CT but ruled out on echocardiogram.
Achalasia -Aspiration precautions. Patient states he is scheduled to see Dr. Abreu in April for a procedure on the esophagus.
COPD - stable
- continue home inhaler (trelegy)
- prn nebs
- no indication for systemic steroids
DVT Prophylaxis: Lovenox subq
Full Code
Anticipated Discharge: > 48 hours
Subjective/Interval History
-
Date of Service: April 02, 2024
Patient seen and examined. No complaints. Eager to go home.
Objective Data
-
Labs:
Laboratory Results
04/02/24
07:05
Sodium 136
Potassium 3.8
Chloride 99
Carbon Dioxide 32 H
BUN 13
Creatinine 0.7
Glucose 120 H
Calcium 7.7 L
Total Bilirubin 0.5
AST 187 H
ALT 150 H
Alkaline Phosphatase 128 H
Vital Signs:
Vital Signs
Temp Pulse Resp BP Pulse Ox
98.8 F 72 16 139/80 94
04/02/24 07:43 04/02/24 07:46 04/02/24 07:46 04/02/24 07:43 04/02/24 07:46
I&O
04/01/24 04/02/24 04/03/24
06:59 06:59 06:59
Intake Total 920 / 920 240 / 240
Output Total 866 / 866 650 / 650
Balance 54 / 54 -650 / -650 240 / 240
Review of Systems
-
History Source: Patient
All other systems: Reviewed and negative
[2024-04-02 15:10] VITALS: BP 140/80; BMI 28.9
--- NOTE | 2024-04-02 16:27 | CM ---
Patient seen bedside.
Patient continues with Chest tube abd IV anbx.
Plan: home no needs anticipated.
--- NOTE | 2024-04-02 16:40 | W.PN.PUL3 ---
Today's Communication / Plan
-
CT guided drainage/chest tube in a.m.
Appropriate studies ordered
Continue antibiotics
Positional therapy, head of bed elevated
Assessment
-
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 He denies any trauma. Found to have
loculated pleural effusion. He was also being worked up for achalasia and possible GI surgery in the next few months. We are asked to comment on his pulmonary process
Loculated left pleural effusion - suspected parapneumonic effusion given leukocytosis and fevers/chills prior to arrival and fevers since admitted
Mild pleural thickening
Likely chronic component as he was having left-sided symptoms for months (pleurisy, mild dyspnea)
LLL CAP
Chronic cough
Reported Hx of COPD on [facility] as an outpatient
Transaminitis
Conditions present prior to admission
Hypertension/hyperlipidemia
History of achalasia
Followed by GI, awaiting for surgical intervention
GERD
[id number] history of smoking, quit 2023
Family history of lung cancer (sister) sixth decade
Plan/recommendations
At this time, patient appears stable
Mild chest discomfort
Has had symptoms for months according to patient
Family history of lung cancer noted
He admits to having fevers and chills few days prior to arrival
Chest tube drainage minimal after intrapleural dornase this morning
CT chest reveals a pocket of fluid posteriorly
Moving forward
Discuss with interventional radiology
Continue with empiric antibiotics
ID following, currently on Unasyn
We will plan for removal of chest tube and drainage versus chest tube with dornase and posterior pocket
Plan for the a.m.
Continue with inhaler therapy (Symbicort 80mcg + Spiriva) for reported history of COPD
Pt underwent L-sided thoracentesis on 03/30/2024 with mild improvement in his SOB and L-sided discomfort - removed 150cc, although CT Chest on 03/27/2024 shows LLL-loculated effusion so this is likely why only small amount was removed
Status post chest tube placement, tPA/dornase, 500 cc drained over the last 24 hours
We will remove tomorrow, replace with second chest tube in pocket of fluid with intrapleurallytic therapy
Follow up micro and cyto
Pain control as needed
Daily CXR while following chest tube output
Once discharged, he will need repeat CXR in 4-6 weeks
Liver function improving
Head of bed elevated, aspiration precautions given achalasia
DVT prophylaxis: Continue with enoxaparin
GI prophylaxis: Patient on Protonix
Disposition efforts
Subjective Data
-
Date of Service:
Date of Service: April 02, 2024
Chief Complaint: Pulmonary Follow Up
Subjective:
Overall, no significant change. Patient continues to have chest tube discomfort. Denies shortness of breath, nausea, Don pain. Sleeping more upright, awoke during exam
Objective Data
Data Reviewed
Vital Signs / I&O / Oxygen:
Vital Signs
Temp Pulse Resp BP Pulse Ox
97.7 F 79 20 140/80 94
04/02/24 15:10 04/02/24 15:10 04/02/24 15:10 04/02/24 15:10 04/02/24 15:10
Intake and Output
04/01/24 04/02/24 04/03/24
06:59 06:59 06:59
Intake Total 920 / 920 240 / 240
Output Total 866 / 866 650 / 650
Balance 54 / 54 -650 / -650 240 / 240
SaO2 94
Nasal Cannula flow liters per 2
minute
Physical Exam
General: Comfortable
HEENT: Normocephalic
Cardiovascular: S1-S2, Regular Rhythm, Murmur (n) and Rub (n)
Respiratory: Wheeze (n), Rhonchi (n), Non-Labored Respirations and Other (Decreased at the left base, chest tube in place, no air leak, no tidaling)
GI: Soft, Non Distended, Non Tender and Normal Bowel Sounds
Neurology: Awake, Alert and No Motor Deficits
Skin: Cyanosis (n), Jaundice (n) and Rash (n)
Labs/Micro/Reports
Lab Data
04/01/24 06:36
04/02/24 07:05
Microbiology
03/30/24 11:23 Pleural Fluid Body Fluid Culture - Final
No Growth After 72 Hours
03/30/24 11:23 Pleural Fluid Gram Stain - Final
03/31/24 15:43 Pleural Fluid Body Fluid Culture - Preliminary
No Growth After 48 Hours
03/31/24 15:43 Pleural Fluid Gram Stain - Preliminary
03/27/24 17:06 Blood/Venous Blood Culture - Final
No Growth - Final Report
03/27/24 16:57 Blood/Venous Blood Culture - Final
No Growth - Final Report
04/01/24 02:47 Urine Streptococcus pneumoniae Antigen (M - Final
Negative for Streptococcus pneumoniae antigen.
A negative result does not exclude infection with
Streptococcus pneumoniae. Clinical correlation is
recommended.
[2024-04-02] MEDS: LOVENOX 40 MG SC (17:01)
--- NOTE | 2024-04-02 18:02 | PTCARENOTE ---
Patient received from CT scan dept awake and alert. Chest tube to wall suction , no c/o pain or discomfort. Oriented to room . No complaints at present.
[2024-04-02 23:00] VITALS: BP 140/75
[2024-04-03] MEDS: UNASYN IV ×4 (06:09→23:03)
[2024-04-03 06:32] VITALS: BMI 28.6
[2024-04-03 07:08] LABS: % Basophils 0.5 % (0-2); % Eosinophils 0.8 % (0-6); % Immature Granulocytes 1.7 % (0-0.5); % Lymphocytes 13.3 % (20.5-51.1); % Monocytes 7.3 % (1.7-9.3); % Neutrophils 76.4 % (42.2-75.2); Absolute Basophils 0.1 10^3/uL (0-0.2); Absolute Eosinophils 0.1 10^3/uL (0-0.7); Absolute Immature Granulocytes 0.2 10^3/uL (0-0.05); Absolute Lymphocytes 1.8 10^3/uL (1.2-3.4); Absolute Neutrophils 10.1 10^3/uL (1.4-6.5); Hematocrit 34.6 % (39.0-52.0); Hemoglobin 11.5 g/dL (13.0-18.0); Mean Corp Hgb Conc. 33.2 g/dL (33.0-37.0); Mean Corpuscular Hgb 36.4 pg (27.0-31.0); Mean Corpuscular Volume 109.5 fL (80.0-94.0); Mean Platelet Volume 8.5 fL (7.4-10.4); Nucleated Red Blood Cells % 0 % (-); Platelet Count 295 10^3/uL (130-400); Red Blood Cell Count 3.16 10^6/uL (4.70-6.10); Red Cell Dist. Width 13.3 % (11.5-14.5); White Blood Cell Count 13.2 10^3/uL (4.8-10.8)
[2024-04-03 07:17] LABS: INR 1.42; PT 17.9 Sec (11.4-14.6)
[2024-04-03 07:21] VITALS: BP 127/79
[2024-04-03] MEDS: SYMBICORT 80/4.5 MCG INHALER 2 PUFF INH ×2 (07:24→20:22)
[2024-04-03] MEDS: SPIRIVA RESPIMAT 2.5 MCG 2 PUFF INH (07:24)
[2024-04-03] MEDS: LOTREL 5 MG/20 MG 1 CAPSULE PO (07:56)
[2024-04-03] MEDS: HYDREA 500 MG PO ×2 (07:56→19:53)
[2024-04-03] MEDS: FOLVITE 1 MG PO (07:56)
[2024-04-03] MEDS: KCL 20 MEQ PO ×2 (07:57→19:53)
[2024-04-03] MEDS: ASPIR LOW (ENTERIC COATED) 81 MG PO (07:57)
[2024-04-03] MEDS: PROTONIX 40 MG PO (07:57)
[2024-04-03 08:24] LABS: ALT (SGPT) 130 U/L (0-50); AST (SGOT) 111 U/L (17-59); Albumin 2.7 g/dl (3.5-5.0); Alkaline Phosphatase 120 U/L (38-126); Blood Urea Nitrogen 9 mg/dl (9-20); Calcium 7.8 mg/dl (8.4-10.2); Carbon Dioxide 30 mmol/L (22-30); Chloride 97 mmol/L (98-107); Estimated Creatinine Clearance 114 ml/min; Glucose 116 mg/dl (70-99); Sodium 135 mmol/L (135-145); Total Bilirubin 0.8 mg/dl (0.2-1.3); Total Protein 5.4 g/dl (6.3-8.2); eGFR > 60.00
--- NOTE | 2024-04-03 10:03 | W.PN.PUL3 ---
Today's Communication / Plan
-
Await removal of current chest tube, drainage and replacement of chest tube involving pocket per CT imaging
Pleural fluid studies ordered
Continue antibiotics
Follow cultures
Discussed at length the 'physiology' of his pockets of fluids to the best of my ability.
Discussed chronicity of his symptoms leading to suboptimal options for management, given multiple loculations
Patient upset why all procedures could not be done at once. Did the best of my ability to answer his questions
Follow-up imaging will be important to confirm resolution of pleural-parenchymal process as outpatient
Assessment
-
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 He denies any trauma. Found to have
loculated pleural effusion. He was also being worked up for achalasia and possible GI surgery in the next few months. We are asked to comment on his pulmonary process
Loculated left pleural effusion - suspected parapneumonic effusion given leukocytosis and fevers/chills prior to arrival and fevers since admitted
Mild pleural thickening
Likely chronic component as he was having left-sided symptoms for months (pleurisy, mild dyspnea)
Posterior pocket with gas pockets, not accessed by current chest tube (significant loculation)
LLL CAP
Chronic cough
Reported Hx of COPD on Trelegy as an outpatient
Transaminitis
Conditions present prior to admission
Hypertension/hyperlipidemia
History of achalasia
Followed by GI, awaiting for surgical intervention
GERD
[id number] history of smoking, quit 2023
Family history of lung cancer (sister) sixth decade
Plan/recommendations
At this time, patient appears stable
Mild chest discomfort
Has had symptoms for months according to patient
Family history of lung cancer noted
He admits to having fevers and chills few days prior to arrival
CT chest reveals a pocket of fluid posteriorly
Awaiting removal of current chest tube and drainage/second chest tube later today for posterior pocket
Moving forward
Discuss with interventional radiology
Continue with empiric antibiotics
ID following, currently on Unasyn
We will plan for removal of chest tube and drainage versus chest tube with dornase and posterior pocket, pending today
Continue with inhaler therapy (Symbicort 80mcg + Spiriva) for reported history of COPD
Pt underwent L-sided thoracentesis on 03/30/2024 with mild improvement in his SOB and L-sided discomfort - removed 150cc
Significant loculations noted
Status post chest tube placement, tPA/dornase, 500 cc drained over the last 24 hours, no further drainage despite intrapleural lytic therapy
CT chest 04/02 showed pocket with gas pockets, not accessed to chest tube, loculation
Described to patient chronicity of process, loculations, thickened lining of the lung
Patient upset that he is requiring multiple procedures.
I relayed to him that given his chronic symptoms, this is led to significant loculations with requires multiple procedures
I did relay to him that he may need a chest tube in the posterior section for drainage
Follow up micro and cyto
Pain control as needed
Once discharged, he will need repeat CXR in 4-6 weeks
Will eventually require follow-up CT chest in 3 months to confirm complete resolution
Leukocytosis improving
Liver function improving
Follow liver function per primary service
Head of bed elevated, aspiration precautions given achalasia
DVT prophylaxis: Continue with enoxaparin
GI prophylaxis: Patient on Protonix
Disposition efforts
Subjective Data
-
Date of Service:
Date of Service: April 03, 2024
Chief Complaint: Pulmonary Follow Up
Subjective:
Patient not happy that he will not be discharged prior to [facility]. Wondering why it is taking so long for him to have chest tube placed. No changes in overall symptoms, mild discomfort at chest tube site, currently on room air.
Objective Data
Data Reviewed
Vital Signs / I&O / Oxygen:
Vital Signs
Temp Pulse Resp BP Pulse Ox
98.5 F 75 16 127/79 94
04/03/24 07:21 04/03/24 07:28 04/03/24 07:28 04/03/24 07:56 04/03/24 07:28
Intake and Output
04/02/24 04/03/24 04/04/24
06:59 06:59 06:59
Intake Total 480 / 480
Output Total 650 / 650 170 / 170
Balance -650 / -650 310 / 310
SaO2 94
Nasal Cannula flow liters per 2
minute
Physical Exam
General: Comfortable
HEENT: Normocephalic
Cardiovascular: S1-S2, Regular Rhythm, Murmur (n) and Rub (n)
Respiratory: Wheeze (n), Rhonchi (n), Non-Labored Respirations and Other (Decreased at the left base, chest tube in place, no air leak, no tidaling)
GI: Soft, Non Distended and Non Tender
Neurology: Awake, Alert and No Motor Deficits
Skin: Cyanosis (n), Jaundice (n) and Rash (n)
Labs/Micro/Reports
Lab Data
04/03/24 07:00
04/03/24 07:00
Laboratory Results
04/03/24
07:00
PT 17.9 H
INR 1.42
Microbiology
03/31/24 15:43 Pleural Fluid Body Fluid Culture - Final
No Growth After 72 Hours
03/31/24 15:43 Pleural Fluid Gram Stain - Final
03/30/24 11:23 Pleural Fluid Body Fluid Culture - Final
No Growth After 72 Hours
03/30/24 11:23 Pleural Fluid Gram Stain - Final
03/27/24 17:06 Blood/Venous Blood Culture - Final
No Growth - Final Report
03/27/24 16:57 Blood/Venous Blood Culture - Final
No Growth - Final Report
04/01/24 02:47 Urine Streptococcus pneumoniae Antigen (M - Final
Negative for Streptococcus pneumoniae antigen.
A negative result does not exclude infection with
Streptococcus pneumoniae. Clinical correlation is
recommended.
--- NOTE | 2024-04-03 10:39 | W.PN.HOSP.TC ---
Today's Communication/Plan
-
IR consult
Assessment / Plan
Assessment / Plan
Gen-AAOx3, NAD
HEENT-NC, AT, anicteric, clear oral mm
Neck-supple
CV-reg, no M, +S1/S2
Lungs-clear B/L
Abd-soft, NT, ND
Ext-no edema
Musculoskeletal-no cyanosis, clubbing
Skin-warm and dry
Neuro-grossly non-focal
Psych-calm, cooperative
Sepsis due to community-acquired pneumonia, empyema -clinically improving. Afebrile but WBC is higher today at 13,000. States he feels much better. Denies shortness of breath. Blood cultures negative. IV Unasyn per infectious disease.
Suspect achalasia as the predisposing factor for the pneumonia and empyema. Discussed with patient.
Discussed with patient to try to sleep with the head elevated.
Left-sided parapneumonic effusion/empyema - pH 6.8 on fluid analysis. Exudative based on lights criteria. Chest tube placed March 31 [address] IR[address] chest from April 02 shows bilobed partially loculated left-sided pleural effusion. Discussed with pulmonary service, current chest tube to come out today and IR service to attempt drainage of other loculated collection with potential new chest
tube placement. Discussed with patient.
Acute Hypoxic Respiratory Insufficiency -due to community-acquired pneumonia, pleural effusion. Oxygenation improved, now on room air.
Hypokalemia - improved.
Hyponatremia -likely due to pneumonia. Sodium improved.
Elevated transaminases -possibly drug-induced hepatitis, may be from ceftriaxone. Discontinued. LFTs improving. GGT was normal.
Impaired fasting glucose -hemoglobin A1c 6.4%. Diet, exercise, weight loss recommended. Discussed with patient. Follow-up with PCP.
Lactic Acidosis -due to sepsis, resolved.
Small Pericardial effusion -noted on CT but ruled out on echocardiogram.
Achalasia -Aspiration precautions. Patient states he is scheduled to see Dr. Abreu in April for a procedure on the esophagus.
COPD - stable
- continue home inhaler (trelegy)
- prn nebs
- no indication for systemic steroids
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 Followed by hematology as an outpatient.
DVT Prophylaxis: Lovenox subq
Full Code
Anticipated Discharge: > 48 hours
Subjective/Interval History
-
Date of Service: April 03, 2024
Patient seen and examined. No complaints.
Objective Data
-
Labs:
Laboratory Results
04/03/24
07:00
WBC 13.2 H
Hgb 11.5 L
Hct 34.6 L
Plt Count 295
PT 17.9 H
INR 1.42
Sodium 135
Potassium 4.0
Chloride 97 L
Carbon Dioxide 30
BUN 9
Creatinine 0.7
Glucose 116 H
Calcium 7.8 L
Total Bilirubin 0.8
AST 111 H
ALT 130 H
Alkaline Phosphatase 120
Vital Signs:
Vital Signs
Temp Pulse Resp BP Pulse Ox
98.5 F 75 16 127/79 94
04/03/24 07:21 04/03/24 07:28 04/03/24 07:28 04/03/24 07:56 04/03/24 07:28
I&O
04/02/24 04/03/24 04/04/24
06:59 06:59 06:59
Intake Total 480 / 480
Output Total 650 / 650 170 / 170
Balance -650 / -650 310 / 310
Review of Systems
-
History Source: Patient
All other systems: Reviewed and negative
[2024-04-03 14:46] VITALS: BP 120/77; BP_SYST 73
[2024-04-03 16:01] VITALS: BP 133/73; BP_SYST 73
--- NOTE | 2024-04-03 16:18 | W.PN.UPDATE ---
Update Note
Progress Note Update
250 cc drained posterior fluid collection, CT-guided
Plan for instillation of tPA/dornase, hope for additional drainage
Chest x-ray in a.m.
Pending on findings and continued drainage, may require additional tPA/dornase versus chest tube removal
reviewed with interventional radiology
[2024-04-03 16:23] VITALS: BP 151/85
--- NOTE | 2024-04-03 16:34 | CM ---
Chart reviewed and plan is to home when stable no needs.
Plan; Home no needs when stable.
[2024-04-03] MEDS: LOVENOX 40 MG SC (16:49)
[2024-04-03 16:50] LABS: Body Fluid pH 7.06
[2024-04-03 17:03] LABS: Body Fluid Glucose 38 mg/dl; Body Fluid Protein 4.3 g/dl
[2024-04-03 17:21] LABS: Body Fluid LDH 2003 U/L
[2024-04-03] MEDS: ZOFRAN 4 MG IV (19:59)
[2024-04-03] MEDS: TYLENOL 650 MG PO (21:51)
[2024-04-03 23:02] VITALS: BP 139/78
[2024-04-04] MEDS: UNASYN IV ×4 (05:04→23:11)
[2024-04-04 07:00] VITALS: BP 135/81
[2024-04-04 07:16] LABS: % Basophils 0.4 % (0-2); % Eosinophils 1.4 % (0-6); % Immature Granulocytes 1.9 % (0-0.5); % Lymphocytes 16.8 % (20.5-51.1); % Monocytes 9.6 % (1.7-9.3); % Neutrophils 69.9 % (42.2-75.2); Absolute Eosinophils 0.1 10^3/uL (0-0.7); Absolute Immature Granulocytes 0.2 10^3/uL (0-0.05); Absolute Lymphocytes 1.7 10^3/uL (1.2-3.4); Absolute Neutrophils 7.1 10^3/uL (1.4-6.5); Hemoglobin 11.8 g/dL (13.0-18.0); Mean Corp Hgb Conc. 32.8 g/dL (33.0-37.0); Mean Corpuscular Volume 109.8 fL (80.0-94.0); Mean Platelet Volume 8.2 fL (7.4-10.4); Nucleated Red Blood Cells % 0 % (-); Platelet Count 312 10^3/uL (130-400); Red Blood Cell Count 3.28 10^6/uL (4.70-6.10); Red Cell Dist. Width 13.4 % (11.5-14.5); White Blood Cell Count 10.2 10^3/uL (4.8-10.8)
--- NOTE | 2024-04-04 08:50 | W.PN.HOSP.TC ---
Today's Communication/Plan
-
Chest x-ray
Assessment / Plan
Assessment / Plan
Gen-AAOx3, NAD
HEENT-NC, AT, anicteric, clear oral mm
Neck-supple
CV-reg, no M, +S1/S2
Lungs-clear B/L, left posterior chest tube in place
Abd-soft, NT, ND
Ext-no edema
Musculoskeletal-no cyanosis, clubbing
Skin-warm and dry
Neuro-grossly non-focal
Psych-calm, cooperative
Sepsis due to community-acquired pneumonia, empyema -clinically improving. WBC count improved. States he feels much better. Denies shortness of breath. Blood cultures negative. IV Unasyn per infectious disease.
Suspect achalasia as the predisposing factor for the pneumonia and empyema. Discussed with patient.
Discussed with patient to try to sleep with the head elevated.
Left-sided parapneumonic effusion/empyema - pH 6.8 on fluid analysis. Exudative based on lights criteria. First chest tube placed March 31 by IR, removed April 03. Second chest tube placed on April 03 with 750 cc output overnight. Pleural
lysis completed.
CT chest from April 02 shows bilobed partially loculated left-sided pleural effusion. Discussed with pulmonary service, current chest tube to come out today and IR service to attempt drainage of other loculated collection with potential new chest
tube placement. Discussed with patient.
Await chest x-ray today.
Acute Hypoxic Respiratory Insufficiency -due to community-acquired pneumonia, pleural effusion. Oxygenation improved, now on room air.
Hypokalemia - improved.
Hyponatremia -likely due to pneumonia. Sodium improved.
Elevated transaminases -possibly drug-induced hepatitis, may be from ceftriaxone. Discontinued. LFTs improving. GGT was normal.
Impaired fasting glucose -hemoglobin A1c 6.4%. Diet, exercise, weight loss recommended. Discussed with patient. Follow-up with PCP.
Lactic Acidosis -due to sepsis, resolved.
Small Pericardial effusion -noted on CT but ruled out on echocardiogram.
Achalasia -Aspiration precautions. Patient states he is scheduled to see Dr. Abreu in April for a procedure on the esophagus.
COPD - stable
- continue home inhaler (trelegy)
- prn nebs
- no indication for systemic steroids
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 Followed by hematology as an outpatient.
DVT Prophylaxis: Lovenox subq
Full Code
Anticipated Discharge: 24 - 48 hours
Subjective/Interval History
-
Date of Service: April 04, 2024
Patient seen and examined. No shortness of breath. No complaints.
Objective Data
-
Labs:
Laboratory Results
04/04/24
06:34
WBC 10.2
Hgb 11.8 L
Hct 36.0 L
Plt Count 312
Vital Signs:
Vital Signs
Temp Pulse Resp BP Pulse Ox
98.0 F 72 15 135/81 97
04/04/24 07:00 04/04/24 07:00 04/04/24 07:00 04/04/24 07:00 04/04/24 07:00
I&O
04/03/24 04/04/24 04/05/24
06:59 06:59 06:59
Intake Total 480 / 480 360 / 360
Output Total 170 / 170 1000 / 1000
Balance 310 / 310 -640 / -640
Review of Systems
-
History Source: Patient
All other systems: Reviewed and negative
[2024-04-04] MEDS: SYMBICORT 80/4.5 MCG INHALER 2 PUFF INH ×2 (09:16→20:19)
[2024-04-04] MEDS: SPIRIVA RESPIMAT 2.5 MCG 2 PUFF INH (09:17)
[2024-04-04] MEDS: KCL 20 MEQ PO ×2 (09:25→21:00)
[2024-04-04] MEDS: HYDREA 500 MG PO ×2 (09:25→21:00)
[2024-04-04] MEDS: PROTONIX 40 MG PO (09:25)
[2024-04-04] MEDS: LOTREL 5 MG/20 MG 1 CAPSULE PO (09:25)
[2024-04-04] MEDS: ASPIR LOW (ENTERIC COATED) 81 MG PO (09:25)
[2024-04-04] MEDS: FOLVITE 1 MG PO (09:25)
--- NOTE | 2024-04-04 13:35 | PN.IRAD.UPD ---
Update Note - IRAD
- -
TPA/Dornase instilled into left chest tube. Tube clamped and patient instructed to roll every 30 mins as tolerated. (back, side, back) ap - Unclamp tube in two hours
--- NOTE | 2024-04-04 13:58 | W.PN.ID1 ---
Date of Service
Date of Service: April 04, 2024
Today's Communication
Continue Unasyn.
Assessment / Plan
# Left parapneumonic effusion vs lempyema
-Risk factor: dysphagia from achalasia
-Thoracentesis cx neg to date (pt on abx's at the time)
- 2/4 s/p Chest tube placement, pleurolysis. Fluid exudative
Pleural fluid cx neg to date
- Continue Unasyn then outpatient Augmentin 875mg po bid through 05/04/24
# Fever and leukocytosis resolved
-blood cx's neg
# Conditions [employer] DRAW[employer]
Achalasia
COPD
Hypertension
HLD
Small bowel obstruction status post bowel resection
Chief Complaint
-: Pneumonia and Other (empyema)
Vital Signs / Physical Exam
Vital Signs
Vital Signs
Temp Pulse Resp BP Pulse Ox
98.0 F 76 16 135/81 94
04/04/24 07:00 04/04/24 09:19 04/04/24 09:19 04/04/24 07:00 04/04/24 09:19
Physical Exam
Constitutional: No Acute Distress
Pulmonary: Other (decreased BS left base. Chest tube in place with clear serous output)
Gastrointestinal: Soft, Non Tender, Non Distended and Normal Bowel Sounds
Objective Data
Lab Data
Lab Results
04/04/24 06:34
04/03/24 07:00
PT 17.9 Sec (11.4-14.6) H 04/03/24 07:00
INR 1.42 04/03/24 07:00
Estimated Creat Clear 114 ml/min 04/03/24 07:00
Lactic Acid 1.7 mmol/L (0.7-2.0) 03/27/24 23:57
Total Bilirubin 0.8 mg/dl (0.2-1.3) 04/03/24 07:00
GGT 19 U/L (15-73) 04/01/24 06:36
AST 111 U/L (17-59) H 04/03/24 07:00
ALT 130 U/L (0-50) H 04/03/24 07:00
Alkaline Phosphatase 120 U/L (38-126) 04/03/24 07:00
Most recent labs reviewed.
Micro Results:
04/03/24 16:09 Body Fluid Culture - Preliminary
Pleural Fluid No Growth After 18-24 Hours
Gram Stain - Preliminary
03/31/24 15:43 Body Fluid Culture - Final
Pleural Fluid No Growth After 72 Hours
Gram Stain - Final
03/30/24 11:23 Body Fluid Culture - Final
Pleural Fluid No Growth After 72 Hours
Gram Stain - Final
03/27/24 17:06 Blood Culture - Final
Blood/Venous No Growth - Final Report
03/27/24 16:57 Blood Culture - Final
Blood/Venous No Growth - Final Report
04/01/24 02:47 Streptococcus pneumoniae Antigen (M - Final
Urine Negative for Streptococcus pneumoniae antigen.
A negative result does not exclude infection with
Streptococcus pneumoniae. Clinical correlation is
recommended.
03/31/24 15:44 Fungal Culture - Pending
Pleural Fluid
03/31/24 15:44 Acid Fast Bacilli Smear - Pending
Pleural Fluid Acid Fast Bacilli Culture - Pending
03/28/24 05:34 Legionella Urinary Antigen - Final
Urine Negative for Legionella pneumophila Serogroup 1 antigen.
A negative result does not rule out the possiblity of
Legionella infection due to other serogroups or species of
Legionella. Clinical correlation is recommended.
03/27/24 23:57 Influenza Types A & B (PORSCHE) - Final
Nasal Swab Negative for Influenza A & B, NAAT
Negative results must be combined with clinical observations
and patient history.
Nucleic Acid Amplification test (NAAT)performed on the
[employer] platform.
03/27/[address]: Moderate left pleural effusion with loculation. Patchy parenchymal opacity within the left mid to lower lung, with main differential considerations of atelectasis and/or pneumonia. Moderate diffuse dilation of the esophagus,
extending to the gastroesophageal junction, with no gross evidence for a focal obstructing mass. Of note, this is a similar appearance to upper GI series from March 16, 2024, and the patient has a reported history of achalasia.
03/16/24 UGI Achalasia. During the bulk of the examination, the lower esophageal sphincter was contracted, however, intermittently, it distended to as much as 6 mm.
The thoracic esophagus is mildly dilated measuring 2 cm in diameter and did not completely drain during the course of the study with retained barium in the esophagus to the level of the aortic arch and tertiary contractions in the esophagus.
[2024-04-04 15:08] VITALS: BP 140/84
--- NOTE | 2024-04-04 15:33 | PTCARENOTE ---
Pt chest tube clamped for 2 hours by IRad, unclamped and placed back to suction without difficulty. No c/o pain or discomfort at present . Call camargo in reach.
[2024-04-04] MEDS: LOVENOX 40 MG SC (17:05)
--- NOTE | 2024-04-04 17:22 | W.PN.PUL3 ---
Today's Communication / Plan
-
Continue chest tube output
Chest x-ray in the morning
Follow hemoglobin-pleural fluid is slightly bloody
Continue antibiotics
Assessment
-
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 He denies any trauma. Found to have
loculated pleural effusion. He was also being worked up for achalasia and possible GI surgery in the next few months. We are asked to comment on his pulmonary process
Loculated left pleural effusion - suspected parapneumonic effusion given leukocytosis and fevers/chills prior to arrival and fevers since admitted
Mild pleural thickening
Likely chronic component as he was having left-sided symptoms for months (pleurisy, mild dyspnea)
Posterior pocket with gas pockets, not accessed by current chest tube (significant loculation)
LLL CAP
Chronic cough
Reported Hx of COPD on [facility] as an outpatient
Transaminitis
Conditions present prior to admission
Hypertension/hyperlipidemia
History of achalasia
Followed by GI, awaiting for surgical intervention
GERD
[id number] history of smoking, quit 2023
Family history of lung cancer (sister) sixth decade
Plan/recommendations
No overnight events
Hemodynamically stable
Afebrile. Leukocytosis resolved.
Has had symptoms for months according to patient
Family history of lung cancer noted
He admits to having fevers and chills few days prior to arrival
CT chest reveals a pocket of fluid posteriorly
Status post second chest tube placement and posterior pocket 04/03/2024 status post dornase alpha and lysis
Repeat lysis and dornase alpha 04/04/2024.
Total output last 24 hours 750 cc
-
Continue with antibiotics per infectious disease. currently on Unasyn
Cultures negative so far.
Continue with inhaler therapy (Symbicort 80mcg + Spiriva) for reported history of COPD
Pt underwent L-sided thoracentesis on 03/30/2024 with mild improvement in his SOB and L-sided discomfort - removed 150cc
Significant loculations noted
Status post chest tube placement, tPA/dornase, 500 cc drained over the last 24 hours, no further drainage despite intrapleural lytic therapy
CT chest 04/02 showed pocket with gas pockets, not accessed to chest tube, loculation
Described to patient chronicity of process, loculations, thickened lining of the lung
Patient upset that he is requiring multiple procedures.
Due to late presentation pleural fevers loculated
Follow chest tube output as above.
Culture negative
Pleural fluid negative for malignancy.
-
Once discharged, he will need repeat CXR in 4-6 weeks
Will eventually require follow-up CT chest in 3 months to confirm complete resolution
Patient understand the need to follow-up.
Head of bed elevated, aspiration precautions given achalasia
Risk factor for aspiration.
DVT prophylaxis: Continue with enoxaparin
GI prophylaxis: Patient on Protonix
Disposition efforts
Subjective Data
-
Date of Service:
Date of Service: April 04, 2024
Chief Complaint: Pulmonary Follow Up
Subjective:
No new complaints
Additional tPA/dornase alpha provided today. Tolerated well.
Objective Data
Data Reviewed
Vital Signs / I&O / Oxygen:
Vital Signs
Temp Pulse Resp BP Pulse Ox
98.3 F 92 14 140/84 96
04/04/24 15:08 04/04/24 15:08 04/04/24 15:08 04/04/24 15:08 04/04/24 15:08
Intake and Output
04/03/24 04/04/24 04/05/24
06:59 06:59 06:59
Intake Total 480 / 480 360 / 360
Output Total 170 / 170 1000 / 1000
Balance 310 / 310 -640 / -640
SaO2 96
Nasal Cannula flow liters per 2
minute
Physical Exam
General: Comfortable
HEENT: Normocephalic
Cardiovascular: S1-S2, Regular Rhythm, Murmur (n) and Rub (n)
Respiratory: Wheeze (n), Rhonchi (n), Non-Labored Respirations and Other (Decreased at the left base, chest tube in place, no air leak, no tidaling)
GI: Soft, Non Distended and Non Tender
Neurology: Awake, Alert and No Motor Deficits
Skin: Cyanosis (n), Jaundice (n) and Rash (n)
Labs/Micro/Reports
Lab Data
04/04/24 06:34
04/03/24 07:00
Microbiology
04/03/24 16:09 Pleural Fluid Body Fluid Culture - Preliminary
No Growth After 18-24 Hours
04/03/24 16:09 Pleural Fluid Gram Stain - Preliminary
03/31/24 15:43 Pleural Fluid Body Fluid Culture - Final
No Growth After 72 Hours
03/31/24 15:43 Pleural Fluid Gram Stain - Final
03/30/24 11:23 Pleural Fluid Body Fluid Culture - Final
No Growth After 72 Hours
03/30/24 11:23 Pleural Fluid Gram Stain - Final
03/27/24 17:06 Blood/Venous Blood Culture - Final
No Growth - Final Report
03/27/24 16:57 Blood/Venous Blood Culture - Final
No Growth - Final Report
[2024-04-04] MEDS: TYLENOL 650 MG PO (21:04)
[2024-04-04 23:37] VITALS: BP 126/76
[2024-04-05] MEDS: UNASYN IV ×4 (05:26→23:32)
[2024-04-05] MEDS: SYMBICORT 80/4.5 MCG INHALER 2 PUFF INH ×2 (07:53→20:01)
[2024-04-05] MEDS: SPIRIVA RESPIMAT 2.5 MCG 2 PUFF INH (07:53)
[2024-04-05 07:54] VITALS: BP 129/73
[2024-04-05] MEDS: PROTONIX 40 MG PO (08:30)
[2024-04-05] MEDS: KCL 20 MEQ PO ×2 (08:30→20:35)
[2024-04-05] MEDS: ASPIR LOW (ENTERIC COATED) 81 MG PO (08:30)
[2024-04-05] MEDS: LOTREL 5 MG/20 MG 1 CAPSULE PO (08:30)
[2024-04-05] MEDS: FOLVITE 1 MG PO (08:30)
[2024-04-05] MEDS: HYDREA 500 MG PO ×2 (08:31→20:35)
--- NOTE | 2024-04-05 09:42 | W.PN.HOSP.TC ---
Today's Communication/Plan
-
Follow-up chest x-ray
Assessment / Plan
Assessment / Plan
Gen-AAOx3, NAD
HEENT-NC, AT, anicteric, clear oral mm
Neck-supple
CV-reg, no M, +S1/S2
Lungs-clear B/L, left posterior chest tube in place
Abd-soft, NT, ND
Ext-no edema
Musculoskeletal-no cyanosis, clubbing
Skin-warm and dry
Neuro-grossly non-focal
Psych-calm, cooperative
Sepsis due to community-acquired pneumonia, empyema -clinically improving. WBC count improved. States he feels much better. Denies shortness of breath. Blood cultures negative. IV Unasyn per infectious disease.
Suspect achalasia as the predisposing factor for the pneumonia and empyema. Discussed with patient.
Discussed with patient to try to sleep with the head elevated.
Left-sided parapneumonic effusion/empyema - pH 6.8 on fluid analysis. Exudative based on lights criteria. First chest tube placed March 31 by IR, removed April 03. Second chest tube placed on April 03 with 445 cc output overnight. Pleural
lysis completed.
CT chest from April 02 shows bilobed partially loculated left-sided pleural effusion. Discussed with pulmonary service, current chest tube to come out today and IR service to attempt drainage of other loculated collection with potential new chest
tube placement. Discussed with patient.
Await chest x-ray today.
Acute Hypoxic Respiratory Insufficiency -due to community-acquired pneumonia, pleural effusion. Oxygenation improved, now on room air.
Hypokalemia - improved.
Hyponatremia -likely due to pneumonia. Sodium improved.
Elevated transaminases -possibly drug-induced hepatitis, may be from ceftriaxone. Discontinued. LFTs improving. GGT was normal.
Impaired fasting glucose -hemoglobin A1c 6.4%. Diet, exercise, weight loss recommended. Discussed with patient. Follow-up with PCP.
Lactic Acidosis -due to sepsis, resolved.
Small Pericardial effusion -noted on CT but ruled out on echocardiogram.
Achalasia -Aspiration precautions. Patient states he is scheduled to see Dr. Abreu in April for a procedure on the esophagus.
COPD - stable
- continue home inhaler (trelegy)
- prn nebs
- no indication for systemic steroids
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 Followed by hematology as an outpatient.
DVT Prophylaxis: Lovenox subq
Full Code
Anticipated Discharge: 24 - 48 hours
Subjective/Interval History
-
Date of Service: April 05, 2024
Patient seen and examined. No complaints.
Objective Data
-
Vital Signs:
Vital Signs
Temp Pulse Resp BP Pulse Ox
98.9 F 69 16 129/73 96
04/05/24 07:54 04/05/24 07:56 04/05/24 07:56 04/05/24 07:54 04/05/24 07:56
I&O
04/04/24 04/05/24 04/06/24
06:59 06:59 06:59
Intake Total 360 / 360 1680 / 1680
Output Total 1000 / 1000 1145 / 1145
Balance -640 / -640 535 / 535
Review of Systems
-
History Source: Patient
All other systems: Reviewed and negative
--- NOTE | 2024-04-05 13:57 | VATNOTE ---
called by PCNCecilia to assess right forearm IV site; moderate 10cm x 11cm phlebitic area noted. Red, swollen (+2) &I warm to touch., Pt. denies pain. Only medicine gone thru site was 0600 dose of Unasyn per PCN. IV site removed & ice applied. IV
restarted left wrist. VAT to follow.
[2024-04-05 15:00] VITALS: BP 115/71
[2024-04-05] MEDS: LOVENOX 40 MG SC (17:09)
--- NOTE | 2024-04-05 17:25 | W.PN.PUL3 ---
Today's Communication / Plan
-
Chest x-ray AP and lateral
Continue antibiotics
Chest tube in place. CT of the chest may be needed before discontinuing pigtail
Assessment
-
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 He denies any trauma. Found to have
loculated pleural effusion. He was also being worked up for achalasia and possible GI surgery in the next few months. We are asked to comment on his pulmonary process
Loculated left pleural effusion - suspected parapneumonic effusion given leukocytosis and fevers/chills prior to arrival and fevers since admitted
Mild pleural thickening
Likely chronic component as he was having left-sided symptoms for months (pleurisy, mild dyspnea)
Posterior pocket with gas pockets, not accessed by current chest tube (significant loculation)
LLL CAP
Chronic cough
Reported Hx of COPD on [facility] as an outpatient
Transaminitis
Conditions present prior to admission
Hypertension/hyperlipidemia
History of achalasia
Followed by GI, awaiting for surgical intervention
GERD
[id number] history of smoking, quit 2023
Family history of lung cancer (sister) sixth decade
Plan/recommendations
Remains hemodynamically stable. Afebrile.
Leukocytosis improved to 10/14/2024.
Chest x-ray
--
Has had symptoms for months according to patient
Family history of lung cancer noted
He admits to having fevers and chills few days prior to arrival.
-
Pt underwent L-sided thoracentesis on 03/30/2024 with mild improvement in his SOB and L-sided discomfort - removed 150cc
Significant loculations noted
Status post chest tube placement , tPA/dornase, 500 cc drained over the last 24 hours, no further drainage despite intrapleural lytic therapy
CT chest 04/02 showed pocket with gas pockets, not accessed to chest tube, loculation
CT chest reveals a pocket of fluid posteriorly
Status post second chest tube placement and posterior pocket 04/03/2024 status post dornase alpha and lysis
Repeat lysis and dornase alpha 04/04/2024.
Total output 04/04/2019 25-: 445 cc
Chest x-ray 04/05/2024: Left pigtail catheter in adequate place. No pneumothorax. Improvement in loculated component of the pleural effusion previously present.
Hold off on further lysis for today.
-
Obtain chest x-ray AP and lateral tomorrow morning
CT of the chest may be necessary to further evaluate residual pockets. He is clinically responding.
Discussed with interventional radiology Dr. Alvarado 04/05/2024.
-
Continue with antibiotics per infectious disease. currently on Unasyn
Cultures negative so far.
Continue with inhaler therapy (Symbicort 80mcg + Spiriva) for reported history of COPD
Described to patient chronicity of process, loculations, thickened lining of the lung
-
Patient initially upset that he is requiring multiple procedures.
Due to late presentation pleural fevers loculated
He understood rational after explaining.
-
Culture negative
Pleural fluid negative for malignancy.
-
Once discharged, he will need repeat CXR in 4-6 weeks
Will eventually require follow-up CT chest in 3 months to confirm complete resolution
Patient understand the need to follow-up.
Head of bed elevated, aspiration precautions given achalasia
Risk factor for aspiration.
DVT prophylaxis: Continue with enoxaparin
GI prophylaxis: Patient on Protonix
Disposition efforts
Subjective Data
-
Date of Service:
Date of Service: April 05, 2024
Chief Complaint: Pulmonary Follow Up
Objective Data
Data Reviewed
Vital Signs / I&O / Oxygen:
Vital Signs
Temp Pulse Resp BP Pulse Ox
98.5 F 84 18 115/71 95
04/05/24 15:00 04/05/24 15:00 04/05/24 15:00 04/05/24 15:00 04/05/24 15:00
Intake and Output
04/04/24 04/05/24 04/06/24
06:59 06:59 06:59
Intake Total 360 / 360 1680 / 1680
Output Total 1000 / 1000 1145 / 1145
Balance -640 / -640 535 / 535
SaO2 95
Nasal Cannula flow liters per 2
minute
Physical Exam
General: Comfortable
HEENT: Normocephalic
Cardiovascular: S1-S2, Regular Rhythm, Murmur (n) and Rub (n)
Respiratory: Wheeze (n), Rhonchi (n), Non-Labored Respirations and Other (Decreased at the left base, chest tube in place, no air leak, no tidaling)
GI: Soft, Non Distended and Non Tender
Neurology: Awake, Alert and No Motor Deficits
Skin: Cyanosis (n), Jaundice (n) and Rash (n)
Labs/Micro/Reports
Lab Data
04/04/24 06:34
04/03/24 07:00
Microbiology
04/03/24 16:09 Pleural Fluid Body Fluid Culture - Preliminary
No Growth After 48 Hours
04/03/24 16:09 Pleural Fluid Gram Stain - Preliminary
03/31/24 15:43 Pleural Fluid Body Fluid Culture - Final
No Growth After 72 Hours
03/31/24 15:43 Pleural Fluid Gram Stain - Final
[2024-04-05 19:42] VITALS: BP 111/59
[2024-04-05] MEDS: TYLENOL 650 MG PO (22:30)
[2024-04-05 23:43] VITALS: BP 106/76
[2024-04-06] MEDS: UNASYN IV ×4 (05:23→23:40)
[2024-04-06 07:00] VITALS: BP 130/73
[2024-04-06 07:24] LABS: % Basophils 0.8 % (0-2); % Eosinophils 1.9 % (0-6); % Immature Granulocytes 2.9 % (0-0.5); % Lymphocytes 19.2 % (20.5-51.1); % Monocytes 9.8 % (1.7-9.3); % Neutrophils 65.4 % (42.2-75.2); Absolute Basophils 0.1 10^3/uL (0-0.2); Absolute Eosinophils 0.2 10^3/uL (0-0.7); Absolute Immature Granulocytes 0.3 10^3/uL (0-0.05); Absolute Lymphocytes 1.8 10^3/uL (1.2-3.4); Absolute Monocytes 0.9 10^3/uL (0.1-0.6); Absolute Neutrophils 6.1 10^3/uL (1.4-6.5); Hematocrit 32.1 % (39.0-52.0); Hemoglobin 10.7 g/dL (13.0-18.0); Mean Corp Hgb Conc. 33.3 g/dL (33.0-37.0); Mean Corpuscular Hgb 36.4 pg (27.0-31.0); Mean Corpuscular Volume 109.2 fL (80.0-94.0); Mean Platelet Volume 8.3 fL (7.4-10.4); Nucleated Red Blood Cells % 0 % (-); Platelet Count 338 10^3/uL (130-400); Red Blood Cell Count 2.94 10^6/uL (4.70-6.10); Red Cell Dist. Width 13.4 % (11.5-14.5); White Blood Cell Count 9.3 10^3/uL (4.8-10.8)
[2024-04-06] MEDS: SYMBICORT 80/4.5 MCG INHALER 2 PUFF INH ×2 (07:49→21:15)
[2024-04-06] MEDS: SPIRIVA RESPIMAT 2.5 MCG 2 PUFF INH (07:49)
[2024-04-06] MEDS: KCL 20 MEQ PO ×2 (07:56→19:28)
[2024-04-06] MEDS: FOLVITE 1 MG PO (07:56)
[2024-04-06] MEDS: LOTREL 5 MG/20 MG 1 CAPSULE PO (07:56)
[2024-04-06] MEDS: PROTONIX 40 MG PO (07:56)
[2024-04-06] MEDS: ASPIR LOW (ENTERIC COATED) 81 MG PO (07:56)
[2024-04-06] MEDS: HYDREA 500 MG PO ×2 (07:57→19:27)
[2024-04-06 08:05] LABS: ALT (SGPT) 81 U/L (0-50); AST (SGOT) 63 U/L (17-59); Albumin 2.4 g/dl (3.5-5.0); Alkaline Phosphatase 105 U/L (38-126); Blood Urea Nitrogen 8 mg/dl (9-20); Calcium 7.6 mg/dl (8.4-10.2); Carbon Dioxide 30 mmol/L (22-30); Chloride 99 mmol/L (98-107); Estimated Creatinine Clearance 114 ml/min; Glucose 105 mg/dl (70-99); Potassium 3.6 mmol/L (3.5-5.1); Sodium 134 mmol/L (135-145); Total Bilirubin 0.6 mg/dl (0.2-1.3); Total Protein 5.2 g/dl (6.3-8.2); eGFR > 60.00
[2024-04-06 08:13] VITALS: BP 130/73
--- NOTE | 2024-04-06 08:45 | VATNOTE ---
Vat rounds: Right arm continues to be swollen and red. Warm compress applie for patient's comfort. Will monitor closely.
--- NOTE | 2024-04-06 11:57 | W.PN.PUL3 ---
Today's Communication / Plan
-
Currently stable on RA, chest tube noted, maintained on suction
Output minimal in past 24 hours, CXR appears improved, no signfiicant findings
Can observe another 24 hours, if output remains minimal, can consider discontinuation of tube
Explained to patient, he is in agreement
Encouraged OOB/PT/IS
Assessment
-
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 He denies any trauma. Found to have
loculated pleural effusion. He was also being worked up for achalasia and possible GI surgery in the next few months. We are asked to comment on his pulmonary process
Loculated left pleural effusion - suspected parapneumonic effusion given leukocytosis and fevers/chills prior to arrival and fevers since admitted
Mild pleural thickening
Likely chronic component as he was having left-sided symptoms for months (pleurisy, mild dyspnea)
Posterior pocket with gas pockets, not accessed by current chest tube (significant loculation)
LLL CAP
Chronic cough
Reported Hx of COPD on Trele as an outpatient
Transaminitis
Conditions present prior to admission
Hypertension/hyperlipidemia
History of achalasia
Followed by GI, awaiting for surgical intervention
GERD
[id number] history of smoking, quit 2023
Family history of lung cancer (sister) sixth decade
Plan/recommendations
Remains hemodynamically stable. Afebrile.
Currently 97% on RA
Leukocytosis improved to 10/14/2024.
Chest x-ray this AM reviewed, showing minimal fluid
--
Has had symptoms for months according to patient
Family history of lung cancer noted
He admits to having fevers and chills few days prior to arrival.
-
Pt underwent L-sided thoracentesis on 03/30/2024 with mild improvement in his SOB and L-sided discomfort - removed 150cc
Significant loculations noted
Status post chest tube placement , tPA/dornase, 500 cc drained over the last 24 hours, no further drainage despite intrapleural lytic therapy
CT chest 04/02 showed pocket with gas pockets, not accessed to chest tube, loculation
CT chest reveals a pocket of fluid posteriorly
Status post second chest tube placement and posterior pocket 04/03/2024 status post dornase alpha and lysis
Repeat lysis and dornase alpha 04/04/2024.
Total output 04/04/2019 25-: 445 cc
Chest x-ray 04/05/2024: Left pigtail catheter in adequate place. No pneumothorax. Improvement in loculated component of the pleural effusion previously present.
Hold off on further lysis for today.
-
Obtain chest x-ray AP and lateral in AM again
CT of the chest may be necessary to further evaluate residual pockets. He is clinically responding.
Discussed with interventional radiology Dr. Alvarado 04/05/2024.
-
Continue with antibiotics per infectious disease. currently on Unasyn
Cultures negative so far.
Pleural fluid negative for malignancy.
Continue with inhaler therapy (Symbicort 80mcg + Spiriva) for reported history of COPD
Encouraged OOB, PT, IS
Once discharged, he will need repeat CXR in 4-6 weeks
Will eventually require follow-up CT chest in 3 months to confirm complete resolution
Patient understand the need to follow-up.
Head of bed elevated, aspiration precautions given achalasia
Risk factor for aspiration.
DVT prophylaxis: Continue with enoxaparin
GI prophylaxis: Patient on Protonix
Disposition efforts
Diagnostic Data
CXR 04/06/24- Stable left-sided pigtail pleural catheter. Predominantly left basilar opacification compatible with left pleural effusion extending into the major fissure.
No findings to confirm pneumothorax.
CT Chest 04/02/24- There is large bilateral partially loculated left-sided pleural effusion, not significantly changed in volume compared with the 03/27/2024 examination and associated with compressive atelectasis in the right lower lobe and lingula
ECHO 03/30/24- Normal biventricular size and systolic function without regional wall motion abnormality. Estimated LVEF 55-60%. Aortic sclerosis without stenosis. Normal pericardium without effusion.
No prior study available for comparison.
Subjective Data
-
Date of Service:
Date of Service: April 06, 2024
Chief Complaint: Pulmonary Follow Up
Subjective:
No new complaints, remains stable on RA
Chest tube in place, minimal output
Objective Data
Data Reviewed
Vital Signs / I&O / Oxygen:
Vital Signs
Temp Pulse Resp BP Pulse Ox
97.6 F 67 14 130/73 97
04/06/24 07:00 04/06/24 07:54 04/06/24 07:54 04/06/24 07:00 04/06/24 07:54
Intake and Output
04/05/24 04/06/24 04/07/24
06:59 06:59 06:59
Intake Total 1680 / 1680 960 / 960
Output Total 1145 / 1145 370 / 370
Balance 535 / 535 590 / 590
SaO2 97
Nasal Cannula flow liters per 2
minute
Physical Exam
General: Comfortable and Good Appetite
HEENT: Normocephalic and Anicteric
Cardiovascular: S1-S2, Regular Rhythm, Murmur (n) and Rub (n)
Respiratory: Wheeze (n), Rhonchi (n), Non-Labored Respirations and Other (Decreased at the left base, chest tube in place, no air leak, no tidaling)
GI: Soft, Non Distended and Non Tender
Neurology: Awake, Alert, Oriented and No Motor Deficits
Skin: Cyanosis (n), Jaundice (n) and Rash (n)
Labs/Micro/Reports
Lab Data
04/06/24 06:54
04/06/24 06:54
Microbiology
04/03/24 16:09 Pleural Fluid Body Fluid Culture - Final
No Growth After 72 Hours
04/03/24 16:09 Pleural Fluid Gram Stain - Final
03/31/24 15:44 Pleural Fluid Fungal Culture - Preliminary
Culture in progress.
Positive cultures are reported as soon as detected.
Final report to follow in four to five weeks.
03/31/24 15:44 Pleural Fluid Acid Fast Bacilli Smear - Preliminary
03/31/24 15:44 Pleural Fluid Acid Fast Bacilli Culture - Preliminary
03/31/24 15:43 Pleural Fluid Body Fluid Culture - Final
No Growth After 72 Hours
03/31/24 15:43 Pleural Fluid Gram Stain - Final
--- NOTE | 2024-04-06 14:10 | W.PN.HOSP.TC ---
Today's Communication/Plan
-
continue Abx per ID
CT management per pulm/IR
Assessment / Plan
Assessment / Plan
Assessment:
Sepsis due to community-acquired pneumonia with L empyema
- continue Unasyn per ID
Left-sided parapneumonic effusion/empyema - pH 6.8 on fluid analysis. Exudative based on lights criteria.
- s/p chest tube #1 placed 03/31 and removed 04/03
- chest tube #2 placed 04/03
- pleural lysis per IR
- follow serial imaging
- follow pulm and IR recs
Acute Hypoxic Respiratory Insufficiency
- resolved
Hypokalemia - improved.
Hyponatremia - likely due to pneumonia. Sodium improved.
Elevated transaminases
- possibly drug-induced hepatitis, may be from ceftriaxone. Discontinued. LFTs improving. GGT was normal.
Impaired fasting glucose - hemoglobin A1c 6.4%. Diet, exercise, weight loss recommended. Discussed with patient. Follow-up with PCP.
Lactic Acidosis - due to sepsis, resolved.
Small Pericardial effusion - noted on CT but ruled out on echocardiogram.
Achalasia - Aspiration precautions. Patient states he is scheduled to see Dr. Abreu in April for a procedure on the esophagus.
COPD - stable
- continue home inhaler (trelegy)
- prn nebs
- no indication for systemic steroids
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 Followed by hematology as an outpatient.
DVT ppx: Lovenox
Code: Full
Anticipated Discharge: > 48 hours
Subjective/Interval History
-
Date of Service: April 06, 2024
denies any complaints
remains with L chest tube
Objective Data
-
Labs:
Laboratory Results
04/06/24
06:54
WBC 9.3
Hgb 10.7 L
Hct 32.1 L
Plt Count 338
Sodium 134 L
Potassium 3.6
Chloride 99
Carbon Dioxide 30
BUN 8 L
Creatinine 0.7
Glucose 105 H
Calcium 7.6 L
Total Bilirubin 0.6
AST 63 H
ALT 81 H
Alkaline Phosphatase 105
Vital Signs:
Vital Signs
Temp Pulse Resp BP Pulse Ox
97.6 F 67 14 130/73 97
04/06/24 07:00 04/06/24 07:54 04/06/24 07:54 04/06/24 07:00 04/06/24 08:00
I&O
04/05/24 04/06/24 04/07/24
06:59 06:59 06:59
Intake Total 1680 / 1680 960 / 960
Output Total 1145 / 1145 370 / 370
Balance 535 / 535 590 / 590
Physical Exam
-
General: No Apparent Distress
HEENT: Normocephalic and Atraumatic
Respiratory: Decreased Breath Sounds and Chest Tubes (left); Negative Wheezes
Cardiac: Regular Rhythm
GI: Soft and Nontender
Musculoskeletal: No Edema
Neuro: AO x 3
Hematologic / Lymphatic: No Lymphadenopathy
Psych: Calm
Data Reviewed
-
Total Time Spent with Patient (in minutes): 45
Labs: Labs Reviewed by me
[2024-04-06 15:24] VITALS: BP 122/67
[2024-04-06] MEDS: LOVENOX 40 MG SC (17:09)
[2024-04-06] MEDS: TYLENOL 650 MG PO (19:28)
[2024-04-06 23:23] VITALS: BP 126/72
[2024-04-07] MEDS: UNASYN IV ×4 (05:23→23:04)
[2024-04-07 07:00] VITALS: BP 128/79
[2024-04-07] MEDS: SYMBICORT 80/4.5 MCG INHALER 2 PUFF INH ×2 (08:20→20:58)
[2024-04-07] MEDS: SPIRIVA RESPIMAT 2.5 MCG 2 PUFF INH (08:20)
[2024-04-07] MEDS: FOLVITE 1 MG PO (08:44)
[2024-04-07] MEDS: PROTONIX 40 MG PO (08:45)
[2024-04-07] MEDS: ASPIR LOW (ENTERIC COATED) 81 MG PO (08:45)
[2024-04-07] MEDS: HYDREA 500 MG PO ×2 (08:47→20:29)
[2024-04-07] MEDS: LOTREL 5 MG/20 MG 1 CAPSULE PO (08:48)
[2024-04-07 08:50] LABS: Hematocrit 32.6 % (39.0-52.0); Hemoglobin 10.9 g/dL (13.0-18.0); Mean Corp Hgb Conc. 33.4 g/dL (33.0-37.0); Mean Corpuscular Hgb 36.5 pg (27.0-31.0); Mean Platelet Volume 8.4 fL (7.4-10.4); Platelet Count 317 10^3/uL (130-400); Red Blood Cell Count 2.99 10^6/uL (4.70-6.10); Red Cell Dist. Width 13.4 % (11.5-14.5); White Blood Cell Count 10.2 10^3/uL (4.8-10.8)
[2024-04-07 09:27] LABS: Blood Urea Nitrogen 5 mg/dl (9-20); Calcium 7.6 mg/dl (8.4-10.2); Carbon Dioxide 27 mmol/L (22-30); Chloride 99 mmol/L (98-107); Estimated Creatinine Clearance > 125 ml/min; Glucose 92 mg/dl (70-99); Sodium 134 mmol/L (135-145); eGFR > 60.00
[2024-04-07] MEDS: KCL 20 MEQ PO ×2 (09:33→20:28)
--- NOTE | 2024-04-07 12:20 | W.PN.PUL3 ---
Today's Communication / Plan
-
Low output in past 48 hours: 70 and 45mL
Repeat CXR this AM appears stable
Can discontinue chest tube today, discussed case with IR
Repeat CXR in AM, if stable--agree with d/c planning
Case discussed with patient and care team as well
Assessment
-
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 He denies any trauma. Found to have
loculated pleural effusion. He was also being worked up for achalasia and possible GI surgery in the next few months. We are asked to comment on his pulmonary process
Loculated left pleural effusion - suspected parapneumonic effusion given leukocytosis and fevers/chills prior to arrival and fevers since admitted
Mild pleural thickening
Likely chronic component as he was having left-sided symptoms for months (pleurisy, mild dyspnea)
Posterior pocket with gas pockets, not accessed by current chest tube (significant loculation)
LLL CAP
Chronic cough
Reported Hx of COPD on [facility] as an outpatient
Transaminitis
Conditions present prior to admission
Hypertension/hyperlipidemia
History of achalasia
Followed by GI, awaiting for surgical intervention
GERD
[id number] history of smoking, quit 2023
Family history of lung cancer (sister) sixth decade
Plan
Remains hemodynamically stable. Afebrile.
Currently 97% on RA
Leukocytosis improved to 10/14/2024.
Chest x-ray this AM reviewed, showing minimal fluid
--
Has had symptoms for months according to patient
Family history of lung cancer noted
He admits to having fevers and chills few days prior to arrival.
-
Pt underwent L-sided thoracentesis on 03/30/2024 with mild improvement in his SOB and L-sided discomfort - removed 150cc
Significant loculations noted
Status post chest tube placement , tPA/dornase, 500 cc drained over the last 24 hours, no further drainage despite intrapleural lytic therapy
CT chest 04/02 showed pocket with gas pockets, not accessed to chest tube, loculation
CT chest reveals a pocket of fluid posteriorly
Status post second chest tube placement and posterior pocket 04/03/2024 status post dornase alpha and lysis
Repeat lysis and dornase alpha 04/04/2024.
Total output 04/04/2019 25-: 445 cc
Obtain chest x-ray AP and lateral in AM again--minimal fluid
Output in past 48 hours was 70mL and 45mL
Can discontinue tube today, discussed case with IR
-
Continue with antibiotics per infectious disease.
Currently on Unasyn
Cultures negative so far.
Pleural fluid negative for malignancy.
Continue with inhaler therapy (Symbicort 80mcg + Spiriva) for reported history of COPD
Encouraged OOB, PT, IS
Once discharged, he will need repeat CXR in 4-6 weeks
Will eventually require follow-up CT chest in 3 months to confirm complete resolution
Patient understand the need to follow-up.
Head of bed elevated, aspiration precautions given achalasia
Risk factor for aspiration.
DVT prophylaxis: Continue with enoxaparin
GI prophylaxis: Patient on Protonix
Disposition efforts
Diagnostic Data
CXR 04/06/24- Stable left-sided pigtail pleural catheter. Predominantly left basilar opacification compatible with left pleural effusion extending into the major fissure.
No findings to confirm pneumothorax.
CT Chest 04/02/24- There is large bilateral partially loculated left-sided pleural effusion, not significantly changed in volume compared with the 03/27/2024 examination and associated with compressive atelectasis in the right lower lobe and lingula
ECHO 03/30/24- Normal biventricular size and systolic function without regional wall motion abnormality. Estimated LVEF 55-60%. Aortic sclerosis without stenosis. Normal pericardium without effusion.
No prior study available for comparison.
Reports and relevant images were personally reviewed.
Total time spent on this encounter __51__ minutes which includes review of history, physical exam, medications, laboratory data, personal review of imaging, extensive review of outpatient records, discussion with care team and respiratory therapy.
Subjective Data
-
Date of Service:
Date of Service: April 07, 2024
Chief Complaint: Pulmonary Follow Up
Subjective:
Doing well today, remains on RA
Minimal output via chest tube, no new complaints
Objective Data
Data Reviewed
Vital Signs / I&O / Oxygen:
Vital Signs
Temp Pulse Resp BP Pulse Ox
98.3 F 74 16 128/79 96
04/07/24 07:00 04/07/24 08:48 04/07/24 08:21 04/07/24 08:48 04/07/24 08:21
Intake and Output
04/06/24 04/07/24 04/08/24
06:59 06:59 06:59
Intake Total 960 / 960 1080 / 1080
Output Total 370 / 370 745 / 745
Balance 590 / 590 335 / 335
SaO2 96
Nasal Cannula flow liters per 2
minute
Physical Exam
General: Comfortable and Good Appetite
HEENT: Normocephalic and Anicteric
Cardiovascular: S1-S2, Regular Rhythm, Murmur (n) and Rub (n)
Respiratory: Wheeze (n), Rhonchi (n), Non-Labored Respirations and Other (Decreased at the left base, chest tube in place, no air leak, no tidaling)
GI: Soft, Non Distended and Non Tender
Neurology: Awake, Alert, Oriented and No Motor Deficits
Skin: Cyanosis (n), Jaundice (n) and Rash (n)
Labs/Micro/Reports
Lab Data
04/07/24 06:58
04/07/24 06:58
Microbiology
04/03/24 16:09 Pleural Fluid Body Fluid Culture - Final
No Growth After 72 Hours
04/03/24 16:09 Pleural Fluid Gram Stain - Final
03/31/24 15:44 Pleural Fluid Fungal Culture - Preliminary
Culture in progress.
Positive cultures are reported as soon as detected.
Final report to follow in four to five weeks.
03/31/24 15:44 Pleural Fluid Acid Fast Bacilli Smear - Preliminary
03/31/24 15:44 Pleural Fluid Acid Fast Bacilli Culture - Preliminary
--- NOTE | 2024-04-07 14:35 | W.PN.HOSP.TC ---
Today's Communication/Plan
-
dc chest tube
CXR 2V in AM
possible DC in 24 hours
Assessment / Plan
Assessment / Plan
Assessment:
Sepsis due to community-acquired pneumonia with L empyema
- continue Unasyn per ID; then transition to Augmentin through 05/04/24
Left-sided parapneumonic effusion/empyema - pH 6.8 on fluid analysis. Exudative based on lights criteria.
- s/p chest tube #1 placed 03/31 and removed 04/03
- chest tube #2 placed 04/03, planned removal today
- pleural lysis per IR
- follow serial imaging
- follow pulm and IR recs
Acute Hypoxic Respiratory Insufficiency
- resolved
Hypokalemia - improved.
Hyponatremia - likely due to pneumonia. Sodium improved.
Elevated transaminases
- possibly drug-induced hepatitis, may be from ceftriaxone. Discontinued. LFTs improving. GGT was normal.
Impaired fasting glucose - hemoglobin A1c 6.4%. Diet, exercise, weight loss recommended. Discussed with patient. Follow-up with PCP.
Lactic Acidosis - due to sepsis, resolved.
Small Pericardial effusion - noted on CT but ruled out on echocardiogram.
Achalasia - Aspiration precautions. Patient states he is scheduled to see Dr. Abreu in April for a procedure on the esophagus.
COPD - stable
- continue home inhaler (trelegy)
- prn nebs
- no indication for systemic steroids
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 Followed by hematology as an outpatient.
DVT ppx: Lovenox
Code: Full
Anticipated Discharge: Within 24 hours
Subjective/Interval History
-
Date of Service: April 07, 2024
denies any sob or cp
Objective Data
-
Labs:
Laboratory Results
04/07/24
06:58
WBC 10.2
Hgb 10.9 L
Hct 32.6 L
Plt Count 317
Sodium 134 L
Potassium 4.0
Chloride 99
Carbon Dioxide 27
BUN 5 L
Creatinine 0.6 L
Glucose 92
Calcium 7.6 L
Vital Signs:
Vital Signs
Temp Pulse Resp BP Pulse Ox
98.3 F 74 16 128/79 96
04/07/24 07:00 04/07/24 08:48 04/07/24 08:21 04/07/24 08:48 04/07/24 08:21
I&O
04/06/24 04/07/24 04/08/24
06:59 06:59 06:59
Intake Total 960 / 960 1080 / 1080
Output Total 370 / 370 745 / 745
Balance 590 / 590 335 / 335
Physical Exam
-
General: No Apparent Distress
HEENT: Normocephalic and Atraumatic
Respiratory: Chest Tubes (left); Negative Wheezes
Cardiac: Regular Rhythm and S1/S2
GI: Soft and Nontender
Genito-urinary: No Costovertebral Tender
Musculoskeletal: No Edema
Neuro: AO x 3
Data Reviewed
-
Total Time Spent with Patient (in minutes): 42
Labs: Labs Reviewed by me
--- NOTE | 2024-04-07 15:08 | CM ---
Chart reviewed and plan is to home when stable, no needs.
Plan; Home when stable.
[2024-04-07 15:38] VITALS: BP 118/69
--- NOTE | 2024-04-07 16:15 | PN.IRAD.UPD ---
Update Note - IRAD
- -
Cleaned left sided chest tube with chloraprep and removed. Site dressed with vaseline gauze and an optifoam dressing.
Claudy Hendrix RT(R)()
[2024-04-07] MEDS: LOVENOX 40 MG SC (17:23)
[2024-04-07 23:10] VITALS: BP 134/67
[2024-04-08] MEDS: UNASYN IV ×2 (05:44→11:33)
[2024-04-08 07:00] VITALS: BP 129/80
[2024-04-08] MEDS: KCL 20 MEQ PO (08:25)
[2024-04-08] MEDS: LOTREL 5 MG/20 MG 1 CAPSULE PO (08:25)
[2024-04-08] MEDS: PROTONIX 40 MG PO (08:25)
[2024-04-08] MEDS: HYDREA 500 MG PO (08:25)
[2024-04-08] MEDS: FOLVITE 1 MG PO (08:25)
[2024-04-08] MEDS: ASPIR LOW (ENTERIC COATED) 81 MG PO (08:25)
[2024-04-08] MEDS: SYMBICORT 80/4.5 MCG INHALER 2 PUFF INH (08:29)
[2024-04-08] MEDS: SPIRIVA RESPIMAT 2.5 MCG 2 PUFF INH (08:29)
[2024-04-08 09:06] LABS: Hematocrit 32.9 % (39.0-52.0); Mean Corp Hgb Conc. 33.4 g/dL (33.0-37.0); Mean Corpuscular Hgb 36.5 pg (27.0-31.0); Mean Corpuscular Volume 109.3 fL (80.0-94.0); Mean Platelet Volume 8.1 fL (7.4-10.4); Platelet Count 332 10^3/uL (130-400); Red Blood Cell Count 3.01 10^6/uL (4.70-6.10); Red Cell Dist. Width 13.4 % (11.5-14.5); White Blood Cell Count 9.7 10^3/uL (4.8-10.8)
--- NOTE | 2024-04-08 09:10 | W.PN.PUL3 ---
Today's Communication / Plan
-
CXR stable, small hyperlucency present but can be followed as OP
Complete abx per ID with oral course
Stable on RA, wants to go home
Outpatient pulmonary FU recommended, patient aware
Discharge planning otherwise per team
Assessment
-
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 He denies any trauma. Found to have
loculated pleural effusion. He was also being worked up for achalasia and possible GI surgery in the next few months. We are asked to comment on his pulmonary process
Loculated left pleural effusion - suspected parapneumonic effusion given leukocytosis and fevers/chills prior to arrival and fevers since admitted
Mild pleural thickening
Likely chronic component as he was having left-sided symptoms for months (pleurisy, mild dyspnea)
Posterior pocket with gas pockets, not accessed by current chest tube (significant loculation)
LLL CAP
Chronic cough
Reported Hx of COPD on Trelegy as an outpatient
Transaminitis
Conditions present prior to admission
Hypertension/hyperlipidemia
History of achalasia
Followed by GI, awaiting for surgical intervention
GERD
[id number] history of smoking, quit 2023
Family history of lung cancer (sister) sixth decade
Plan
Remains hemodynamically stable. Afebrile.
Currently 97% on RA
Leukocytosis improved to 10/14/2024.
Chest x-ray this AM reviewed, showing minimal fluid--stable
--
Has had symptoms for months according to patient
Family history of lung cancer noted
He admits to having fevers and chills few days prior to arrival.
-
Pt underwent L-sided thoracentesis on 03/30/2024 with mild improvement in his SOB and L-sided discomfort - removed 150cc
Significant loculations noted
Status post chest tube placement , tPA/dornase, 500 cc drained over the last 24 hours, no further drainage despite intrapleural lytic therapy
CT chest 04/02 showed pocket with gas pockets, not accessed to chest tube, loculation
CT chest reveals a pocket of fluid posteriorly
Status post second chest tube placement and posterior pocket 04/03/2024 status post dornase alpha and lysis
Repeat lysis and dornase alpha 04/04/2024.
Total output 04/04/2019 25-: 445 cc
Obtain chest x-ray AP and lateral in AM again--minimal fluid
Output in past 48 hours was 70mL and 45mL
Chest tube discontinued 04/07/24
-
Continue with antibiotics per infectious disease.
Currently on Unasyn, complete PO course
Cultures negative so far.
Pleural fluid negative for malignancy.
Continue with inhaler therapy (Symbicort 80mcg + Spiriva) for reported history of COPD
Encouraged OOB, PT, IS
Once discharged, he will need repeat CXR in 4-6 weeks
Will eventually require follow-up CT chest in 3 months to confirm complete resolution
Patient understand the need to follow-up.
Head of bed elevated, aspiration precautions given achalasia
Risk factor for aspiration.
DVT prophylaxis: Continue with enoxaparin
GI prophylaxis: Patient on Protonix
Disposition efforts
Diagnostic Data
CXR 04/06/24- Stable left-sided pigtail pleural catheter. Predominantly left basilar opacification compatible with left pleural effusion extending into the major fissure.
No findings to confirm pneumothorax.
CT Chest 04/02/24- There is large bilateral partially loculated left-sided pleural effusion, not significantly changed in volume compared with the 03/27/2024 examination and associated with compressive atelectasis in the right lower lobe and lingula
ECHO 03/30/24- Normal biventricular size and systolic function without regional wall motion abnormality. Estimated LVEF 55-60%. Aortic sclerosis without stenosis. Normal pericardium without effusion.
No prior study available for comparison.
Reports and relevant images were personally reviewed.
Total time spent on this encounter __51__ minutes which includes review of history, physical exam, medications, laboratory data, personal review of imaging, extensive review of outpatient records, discussion with care team and respiratory therapy.
Subjective Data
-
Date of Service:
Date of Service: April 08, 2024
Chief Complaint: Pulmonary Follow Up
Subjective:
No new events ON, remains stable on RA
Chest tube discontinued yesterday
No new complaints, ready to go home
Objective Data
Data Reviewed
Vital Signs / I&O / Oxygen:
Vital Signs
Temp Pulse Resp BP Pulse Ox
98.2 F 78 16 129/80 98
04/08/24 07:00 04/08/24 08:29 04/08/24 08:29 04/08/24 07:00 04/08/24 07:00
Intake and Output
04/07/24 04/08/24 04/09/24
06:59 06:59 06:59
Intake Total 1080 / 1080 1440 / 1440
Output Total 745 / 745 200 / 200
Balance 335 / 335 1240 / 1240
SaO2 98
Nasal Cannula flow liters per 2
minute
Physical Exam
General: Comfortable and Good Appetite
HEENT: Normocephalic and Anicteric
Cardiovascular: S1-S2, Regular Rhythm, Murmur (n) and Rub (n)
Respiratory: Clear, Wheeze (n), Rhonchi (n) and Non-Labored Respirations
GI: Soft, Non Distended and Non Tender
Neurology: Awake, Alert, Oriented and No Motor Deficits
Skin: Cyanosis (n), Jaundice (n) and Rash (n)
Labs/Micro/Reports
Lab Data
04/08/24 07:50
Microbiology
04/03/24 16:09 Pleural Fluid Body Fluid Culture - Final
No Growth After 72 Hours
04/03/24 16:09 Pleural Fluid Gram Stain - Final
03/31/24 15:44 Pleural Fluid Fungal Culture - Preliminary
Culture in progress.
Positive cultures are reported as soon as detected.
Final report to follow in four to five weeks.
03/31/24 15:44 Pleural Fluid Acid Fast Bacilli Smear - Preliminary
03/31/24 15:44 Pleural Fluid Acid Fast Bacilli Culture - Preliminary
[2024-04-08 09:38] LABS: Blood Urea Nitrogen 4 mg/dl (9-20); Calcium 7.8 mg/dl (8.4-10.2); Carbon Dioxide 26 mmol/L (22-30); Chloride 99 mmol/L (98-107); Estimated Creatinine Clearance > 125 ml/min; Glucose 97 mg/dl (70-99); Potassium 4.3 mmol/L (3.5-5.1); Sodium 134 mmol/L (135-145); eGFR > 60.00
--- NOTE | 2024-04-08 09:56 | W.PN.HOSP.TC ---
Today's Communication/Plan
-
dc to home
Assessment / Plan
Assessment / Plan
Assessment:
Sepsis due to community-acquired pneumonia with L empyema
- continue Unasyn per ID; then transition to Augmentin through 05/04/24
Left-sided parapneumonic effusion/empyema - pH 6.8 on fluid analysis. Exudative based on lights criteria.
- s/p chest tube #1 placed 03/31 and removed 04/03
- chest tube #2 placed 04/03, removed 04/07
- pleural lysis per IR
- follow serial imaging
- follow pulm and IR recs
Acute Hypoxic Respiratory Insufficiency
- resolved
Hypokalemia - improved.
Hyponatremia - likely due to pneumonia. Sodium improved.
Elevated transaminases
- possibly drug-induced hepatitis, may be from ceftriaxone. Discontinued. LFTs improving. GGT was normal.
Impaired fasting glucose - hemoglobin A1c 6.4%. Diet, exercise, weight loss recommended. Discussed with patient. Follow-up with PCP.
Lactic Acidosis - due to sepsis, resolved.
Small Pericardial effusion - noted on CT but ruled out on echocardiogram.
Achalasia - Aspiration precautions. Patient states he is scheduled to see Dr. Abreu in April for a procedure on the esophagus.
COPD - stable
- continue home inhaler (trelegy)
- prn nebs
- no indication for systemic steroids
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 Followed by hematology as an outpatient.
DVT ppx: Lovenox
Code: Full
More than 30 minutes spent in discharge including
Final examination of the patient
Summarizing hospital stay
Instructions for continuing care to all relevant caregivers
Preparation of discharge records, prescriptions, and referral forms
Total time spent (in minutes):41
Anticipated Discharge: Today
Subjective/Interval History
-
Date of Service: April 08, 2024
no complaints
CXR shows stable findings, no worsening
Objective Data
-
Labs:
Laboratory Results
04/08/24
07:50
WBC 9.7
Hgb 11.0 L
Hct 32.9 L
Plt Count 332
Sodium 134 L
Potassium 4.3
Chloride 99
Carbon Dioxide 26
BUN 4 L
Creatinine 0.6 L
Glucose 97
Calcium 7.8 L
Vital Signs:
Vital Signs
Temp Pulse Resp BP Pulse Ox
98.2 F 78 16 129/80 98
04/08/24 07:00 04/08/24 08:29 04/08/24 08:29 04/08/24 07:00 04/08/24 07:00
I&O
04/07/24 04/08/24 04/09/24
06:59 06:59 06:59
Intake Total 1080 / 1080 1440 / 1440
Output Total 745 / 745 200 / 200
Balance 335 / 335 1240 / 1240
Physical Exam
-
General: No Apparent Distress
HEENT: Normocephalic and Atraumatic
Respiratory: Negative Wheezes
Cardiac: Regular Rhythm and S1/S2
GI: Soft and Nontender
Neuro: AO x 3
Hematologic / Lymphatic: No Lymphadenopathy
Psych: Calm
Data Reviewed
-
Total Time Spent with Patient (in minutes): 41
Labs: Labs Reviewed by me
--- NOTE | 2024-04-08 11:55 | W.DS.TRANS ---
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
-
Discharge Instructions:
Discharge Diagnosis/Procedures sepsis due to CAP pneumonia with L empyema
requiring 2 chest tubes, hypoxia resolved
Diet Low Cholesterol
Activity As tolerated
Instructions:
Stand-Alone Forms:
Changes to Home Medications: No
Discharge Medications:
DC Medications w/original date entered in [employer]
amlodipine 5 mg-benazepril 20 mg capsule 1 cap PO DAILY 03/27/24
aspirin 81 mg tablet,delayed release 81 mg PO DAILY 03/27/24
calcium 500 mg (as carbonate)-vitamin D3 10 mcg (400 unit) tablet (Calcium 500 + D) 1 tab PO DAILY 03/27/24
cyanocobalamin (vitamin B-12) 1,000 mcg tablet 1,000 mcg PO DAILY 03/27/24
fluticasone fur. 100 mcg-umeclid 62.5 mcg-vilant 25 mcg inhalat.powder (Trelegy Ellipta) 1 inh inhalation R DAILY 03/27/24
folic acid 1 mg tablet 1 mg PO DAILY 03/27/24
hydroxyurea 500 mg capsule 500 mg PO BID 03/27/24
pantoprazole 40 mg tablet,delayed release (Protonix) 40 mg PO DAILY 03/27/24
rosuvastatin 40 mg tablet (Crestor) 40 mg PO DAILY 03/27/24
amoxicillin 875 mg-potassium clavulanate 125 mg tablet 1 tab PO BID #54 tabs 04/08/24
Home Medication Changes
Pending Results: No
Total time spent discharging patient (in min): 41
--- NOTE | 2024-04-08 12:17 | CM ---
Chart reviewed and patient has been cleared for discharge today, home no needs.
Plan; Home no needs.
[2024-04-08 12:24] VITALS: BP 132/78
== END 2024-04-08 13:57 | disposition home or self-care (01) | DRG 871 ==
LOC: 4 WEST ACU 20:47
PROVIDERS: Hospitalist; Internal Medicine Critical Care Medicine; Nurse Practitioner Family; Physician Assistant; Radiology Vascular & Interventional Radiology; ADMITTING PHYSICIAN Internal Medicine; ATTENDING PHYSICIAN Internal Medicine; CONSULT PHYSICIAN Internal Medicine Critical Care Medicine; CONSULT PHYSICIAN Internal Medicine Infectious Disease; EMERGENCY PHYSICIAN Emergency Medicine; FAMILY PHYSICIAN Family Medicine
PROC: 0W9B3ZZ Drainage of Left Pleural Cavity, Percutaneous Approach (ICD-10-PCS; 2024-03-30)
PROC: 0W9B30Z Drainage of Left Pleural Cavity with Drainage Device, Percutaneous Approach (ICD-10-PCS; 2024-03-30)
PROC: 3E0L317 Introduction of Other Thrombolytic into Pleural Cavity, Percutaneous Approach (ICD-10-PCS; 2024-03-31)
DX: A41.9 Sepsis, unspecified organism (principal); J18.9 Pneumonia, unspecified organism; J86.9 Pyothorax without fistula; J44.0 Chronic obstructive pulmonary disease with (acute) lower respiratory infection; E87.1 Hypo-osmolality and hyponatremia; J90 Pleural effusion, not elsewhere classified; R09.02 Hypoxemia; Z87.891 Personal history of nicotine dependence; E78.00 Pure hypercholesterolemia, unspecified; I10 Essential (primary) hypertension; E87.6 Hypokalemia; K22.0 Achalasia of cardia; D47.3 Essential (hemorrhagic) thrombocythemia; Z85.820 Personal history of malignant melanoma of skin; Z80.1 Family history of malignant neoplasm of trachea, bronchus and lung; K21.9 Gastro-esophageal reflux disease without esophagitis; Z90.49 Acquired absence of other specified parts of digestive tract; R73.01 Impaired fasting glucose; R73.9 Hyperglycemia, unspecified; K75.9 Inflammatory liver disease, unspecified; T36.95XA Adverse effect of unspecified systemic antibiotic, initial encounter; Z11.52 Encounter for screening for COVID-19
CPT/HCPCS: 88305; 32555; 32557; 32561; 71045; 71046; 71250; 71275; 80048; 80053; 82150; 82248; 82945; 82977; 83036; 83605; 83615; 83735; 83986; 84100; 84155; 84157; 84484; 85025; 85027; 85610; 87015; 87040; 87070; 87102; 87116; 87205; 87449; 87502; 87811; 87899; 88112; 89051; 93005; 93306; 94640; 96361; 96365; 96375; 97116; 97162; 97166; 97530; 99152; 99153; 99285; 99406; C1729; C1769; J2997; Q9967

== ENCOUNTER 2024-05-20 19:25 | Inpatient (IN) | payer MEDICARE, OTHER, SELFPAY ==
[2024-05-12 11:23] LABS: Hematocrit 39.1 % (39.0-52.0); Hemoglobin 13.2 g/dL (13.0-18.0); Mean Corp Hgb Conc. 33.8 g/dL (33.0-37.0); Mean Corpuscular Hgb 37.6 pg (27.0-31.0); Mean Corpuscular Volume 111.4 fL (80.0-94.0); Mean Platelet Volume 8.2 fL (7.4-10.4); Platelet Count 249 10^3/uL (130-400); Red Blood Cell Count 3.51 10^6/uL (4.70-6.10); Red Cell Dist. Width 14.6 % (11.5-14.5)
[2024-05-12 12:25] LABS: Blood Urea Nitrogen 9 mg/dl (9-20); Calcium 9.4 mg/dl (8.4-10.2); Carbon Dioxide 27 mmol/L (22-30); Chloride 99 mmol/L (98-107); Glucose 85 mg/dl (70-99); Potassium 4.5 mmol/L (3.5-5.1); Sodium 140 mmol/L (135-145); eGFR > 60.00
[2024-05-12 14:13] VITALS: BMI 28.6
[2024-05-20] VITALS (19 sets, daily range): BP systolic 144–169; BP diastolic 76–94; BMI 28.6
[2024-05-20] MEDS: TYLENOL 1000 MG PO (10:42)
[2024-05-20] MEDS: NORMOSOL-R/PLASMALYTE-A 1000 IV ×3 (10:42→20:26)
--- NOTE | 2024-05-20 15:14 | W.IMMPOSTOP ---
Surgical Immed Post Op Note
-
Primary Surgeon: Lois
Assisting Surgeon: YAS Thibodeaux
Pre-op Diagnosis: Achalasia
Post-op Diagnosis: Achalasia
Procedure Performed: Laparoscopic Heller myotomy and intraoperative EGD
Anesthesia Type: General
Specimen / Cultures: None
Estimated Blood Loss: 7 cc
Complications: None
Operative Findings:
1. Pre-op EGD with retained food debris, dilated esophagus and tight GEJ
2. > 3 cm esophageal mobilization, no pleural violation, bl vagi identified
3. Esophageal myotomy 6 cm onto esophagus and 2 cm onto stomach
4. Post-myotomy EGD with easily traversed GEJ, leak test negative, no mucosal violation
5. Posterior crural closure with 0 silk x1
6 Loose floppy 2 cm Toupet fundoplication using myotomy edge
[2024-05-20] MEDS: ZOFRAN 4 MG IV (16:19)
[2024-05-20] MEDS: OFIRMEV 100 IV ×2 (17:10→23:04)
[2024-05-20] MEDS: SPIRIVA RESPIMAT 2.5 MCG INH (17:13)
[2024-05-20] MEDS: SYMBICORT 80/4.5 MCG INHALER 2 PUFF INH (19:38)
--- NOTE | 2024-05-20 23:12 | PTCARENOTE ---
Pt received from PACU at 1999. Pt aaox3, VSS, and no c/o pain. 5 laps sites on abd C/D/I w/ surgical glue. Per protocol, pt to be on MSAS d/t drinking twice a week and having more than 6 drinks every Saturday. Pt stated last drink was 05/11. 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
notified and MSAS protocol ordered. MSAS score 1 for HR >80. Pt given urinal and instructed to call for assistance. Pt ringing appropriately and standing on side of bed to use urinal. Call [place]argo within reach and plan of care ongoing.
[2024-05-20] MEDS: DILAUDID 0.5 MG IV (23:55)
[2024-05-21 04:06] VITALS: BP 166/90
[2024-05-21] MEDS: OFIRMEV 100 IV ×2 (04:31→11:21)
[2024-05-21] MEDS: NORMOSOL-R/PLASMALYTE-A 1000 IV (07:11)
[2024-05-21 07:19] LABS: Hematocrit 35.6 % (39.0-52.0); Hemoglobin 12.2 g/dL (13.0-18.0); Mean Corp Hgb Conc. 34.3 g/dL (33.0-37.0); Mean Corpuscular Hgb 37.2 pg (27.0-31.0); Mean Corpuscular Volume 108.5 fL (80.0-94.0); Mean Platelet Volume 8.1 fL (7.4-10.4); Platelet Count 196 10^3/uL (130-400); Red Blood Cell Count 3.28 10^6/uL (4.70-6.10); Red Cell Dist. Width 13.6 % (11.5-14.5); White Blood Cell Count 10.9 10^3/uL (4.8-10.8)
[2024-05-21 07:20] VITALS: BP 156/95
[2024-05-21 07:24] LABS: Blood Urea Nitrogen 10 mg/dl (9-20); Calcium 8.8 mg/dl (8.4-10.2); Carbon Dioxide 26 mmol/L (22-30); Chloride 102 mmol/L (98-107); Estimated Creatinine Clearance > 125 ml/min; Glucose 122 mg/dl (70-99); Potassium 4.2 mmol/L (3.5-5.1); Sodium 137 mmol/L (135-145); eGFR > 60.00
[2024-05-21] MEDS: SPIRIVA RESPIMAT 2.5 MCG 2 PUFF INH (07:30)
[2024-05-21] MEDS: SYMBICORT 80/4.5 MCG INHALER 2 PUFF INH (07:30)
--- NOTE | 2024-05-21 09:31 | W.PN.GS2 ---
Today's Communication / Plan
-
-- Clears ADAT to fulls, nutrition consult for full liquid diet education
-- IVF
-- Home meds reviewed and reordered as needed, crush or open capsules for all meds
-- Pain control: liquid Tylenol and Oxycodone
-- DVT: Lovenox
-- Dispo pending
Assessment / Plan
-
Patient is a 68 yo M POD#1 s/p laparoscopic Heller myotomy with Toupet fundoplication and intraoperative EGD
AVSS
Labs unremarkable
Recovering well. No postoperative concerns. Plan for slow dietary advancement throughout the day; plan for discharge on full liquid diet for 2 weeks with outpatient follow-up and advancement from there. Crush pills. Will reevaluate possible
discharge this afternoon.
-- Clears ADAT to fulls, nutrition consult for full liquid diet education
-- IVF
-- Home meds reviewed and reordered as needed, crush or open capsules for all meds
-- Pain control: liquid Tylenol and Oxycodone
-- DVT: Lovenox
-- GI: none needed with fundo
-- Dispo pending
Subjective Data
-
Date of Service: May 21, 2024
No complaints or issues. Pain well-controlled; he does report some RUQ discomfort and RIGHT shoulder discomfort particular with taking deep breaths. He denies any dysphagia, nausea, or vomiting. He did have some mild nausea overnight which
resolved. Afebrile. Voiding. Minimal ambulation.
Objective Data
-
Intake and Output
05/20/24 05/21/24 05/22/24
06:59 06:59 06:59
Intake Total 500 / 500
Output Total 800 / 800
Balance -300 / -300
Intake:
IV fluids (Total) 500 / 500
normosol 500 / 500
Output:
Urine, Voided 800 / 800
Vital Signs
Temp Pulse Resp BP Pulse Ox
97.7 F 77 16 156/95 99
05/21/24 07:20 05/21/24 07:35 05/21/24 07:35 05/21/24 07:20 05/21/24 07:35
Lab Results
05/21/24 06:40
05/21/24 06:40
Calcium 8.8 mg/dl (8.4-10.2) 05/21/24 06:40
Physical Exam
-
Gen: NAD
Abd: soft, NT/ND, non-peritoneal, incisions c/d/i - no erythema, ecchymosis or drainage
Patient has a hernandez catheter: No
Patient has a central line: No
[2024-05-21] MEDS: LOTREL 5 MG/20 MG 1 CAPSULE PO (11:21)
--- NOTE | 2024-05-21 13:45 | PTCARENOTE ---
Patient tolerated clear liquid diet and is anxious to try a full liquid diet and go home today.
--- NOTE | 2024-05-21 14:35 | CM ---
Met with patient to obtain information for assessment. Also received consult for ETOH dependence. Patient stated that he lives with his in a split level home with 3 steps to enter. He described himself as independent with all ADLs, personal
care, dressing and bathing. 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 He drives and can get himself to his appointments and do all of his own shopping. He has never had VN. He has no DME.
Patient has a prescription plan and uses, [facility] [place] [facility].
Patient's PCP is, Jony Kay.
Patient was offered resources for ETOH, however he declined and stated that he is fine and does not need support.
Plan: Case management will continue to follow and assist with discharge planning. Home when stable.
[2024-05-21 15:38] VITALS: BP 148/84
[2024-05-21 18:46] LABS: Hepatitis C Antibody Negative (Negative)
--- NOTE | 2024-05-22 09:22 | W.PN.SURGUPD ---
Surgical Update
Surgical Update
The intent for this procedure was for an inpatient admission. Please change the record to reflect this accordingly.
--- NOTE | 2024-05-29 11:46 | W.DS.TRANS ---
Addendum entered and electronically signed by CARRINGTON Amaral 05/29/24 11:48:
dictated #[id number]
Original Note:
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
-
Discharge Instructions:
Sleep Apnea Risk Intermediate
Discharge Diagnosis/Procedures Achalasia s/p laparoscopic Heller myotomy with
fundoplication
Diet Other diet
Additional Diets Follow a full liquid diet for 2 weeks
postoperatively (dietary handout provided in the
hospital). Dietary advancement to be
determined as an outpatient. Crush or open all
pills until your follow-up appointment.
Activity No strenuous activity
Additional Activity No heavy lifting (>20 lbs) or strenuous
activities for 4 weeks postoperatively
Driving Restrictions No driving if too sore or taking narcotics
Bathing Restrictions OK to Shower
Wound Care Keep incision clean and dry. Glue will flake
off in 2 to 3 weeks. Stitches will dissolve.
Instructions:
Stand-Alone Forms:
Changes to Home Medications: No
Discharge Medications:
DC Medications w/original date entered in [employer]
amlodipine 5 mg-benazepril 20 mg capsule 1 cap PO DAILY Blood Pressure 03/27/24
aspirin 81 mg tablet,delayed release 81 mg PO QPM Blood Clot Prevention/Tx 03/27/24
cyanocobalamin (vitamin B-12) 1,000 mcg tablet 1,000 mcg PO DAILY Supplement 03/27/24
fluticasone fur. 100 mcg-umeclid 62.5 mcg-vilant 25 mcg inhalat.powder (Trelegy Ellipta) 1 inh inhalation QPM 03/27/24
folic acid 1 mg tablet 1 mg PO BID Supplement 03/27/24
hydroxyurea 500 mg capsule 500 mg PO BID thrombocytosis 03/27/24
rosuvastatin 40 mg tablet (Crestor) 40 mg PO QPM cholesterol 03/27/24
calcium 600 mg (as carbonate)-vitamin D3 5 mcg (200 unit) tablet 1 tab PO QPM Supplement 05/13/24
acetaminophen 325 mg tablet 650 mg (2 x 325 mg) PO Q4HPRN PRN mild pain #1 tab 05/21/24
oxycodone 5 mg/5 mL oral solution 5 mg (5 mL) PO Q6H PRN severe pain #50 mL 05/21/24
Home Medication Changes
Pending Results: No
== END 2024-05-21 16:55 | disposition home or self-care (01) | DRG 328 ==
LOC: 3 WEST ACU 19:25
PROVIDERS: ADMITTING PHYSICIAN Surgery; FAMILY PHYSICIAN Family Medicine
PROC: 0DV44ZZ Restriction of Esophagogastric Junction, Percutaneous Endoscopic Approach (ICD-10-PCS; 2024-05-20)
PROC: 0D844ZZ Division of Esophagogastric Junction, Percutaneous Endoscopic Approach (ICD-10-PCS; 2024-05-20)
PROC: 0DJ08ZZ Inspection of Upper Intestinal Tract, Via Natural or Artificial Opening Endoscopic (ICD-10-PCS; 2024-05-20)
DX: K22.0 Achalasia of cardia (principal); K22.89 Other specified disease of esophagus; K20.90 Esophagitis, unspecified without bleeding; T18.128A Food in esophagus causing other injury, initial encounter; W44.F3XA Food entering into or through a natural orifice, initial encounter; J44.9 Chronic obstructive pulmonary disease, unspecified; D75.839 Thrombocytosis, unspecified; I10 Essential (primary) hypertension; E78.5 Hyperlipidemia, unspecified; Z90.49 Acquired absence of other specified parts of digestive tract
CPT/HCPCS: 36415; 80048; 85027; 86803; 93005; 94640; C1729

== ENCOUNTER → 2024-07-31 09:34 | Outpatient (REF) | payer MEDICARE, OTHER, SELFPAY | LOC: HWRAD 09:34 | PROVIDERS: ATTENDING PHYSICIAN Internal Medicine; FAMILY PHYSICIAN Family Medicine | DX: R05.3 Chronic cough (principal) | CPT/HCPCS: 71250 ==